=== PATIENT | female | born 1960 | race Caucasian/White ===

== ENCOUNTER 2018-12-11 06:29 | Emergency (ER) | payer BC, OTHER ==
[2018-12-11] MEDS ORDERED: Sodium Chloride 0.9% 10 ML Syringe FLUSH PRN (07:08)
[2018-12-11] MEDS ORDERED: Sodium Chloride 0.9% 1,000 ML IV SCH (07:15)
--- NOTE | 2018-12-11 08:03 | EDM.PDOC ---
ED HPI GENERAL MEDICAL PROBLEM - General Chief Complaint: Neurological Problem Stated Complaint: LIGHTHEADED DIZZY Time Seen by Provider: 12/11/18 06:56 Source of Information: Reports: Patient, Family History Limitations: Reports: No Limitations - History of Present Illness INITIAL COMMENTS - FREE TEXT/NARRATIVE: The patient presents with dizziness. This happened just before arrival as she was on her way to work. She says if feels like the room is spinning. She has some pain to the left side of her head. This happened a few months ago when she had a sinus infection and fluid build up in her ear. She has no fever, chills or cough. She does have some congestion. She has no ear pain. She has no sore throat. She has no chest pain, shortness of breath, abdominal pain, nausea or vomiting. She has no numbness or weakness. She has no heart problems. Onset: Sudden Duration: Minutes: Location: Reports: Head (left side) Quality: Reports: Sharp Severity: Mild Improves with: Reports: None Worsens with: Reports: None Associated Symptoms: Reports: Headaches. Denies: Chest Pain, Cough, Fever/ Chills, Nausea/Vomiting, Shortness of Breath Left Parietal Headache Pain Score (Numeric/FACES): 4 - Related Data Allergies Allergy/AdvReac Type Severity Reaction Status Date / Time Iodinated Contrast- Oral and Allergy Anaphylactic Verified 12/11/18 06:38 IV Dye Shock morphine Allergy Swelling Verified 12/11/18 06:38 Home Meds: Home Meds Amoxicillin 875 mg PO BID #20 tab 12/11/18 [Rx] Meclizine [Antivert] 25 mg PO Q6H PRN #30 tab 12/11/18 [Rx] Past Medical History Musculoskeletal History: Reports: Fracture - Past Surgical History HEENT Surgical History: Reports: Naso-Sinus Surgery Female Surgical History: Reports: Hysterectomy, Tubal Ligation Musculoskeletal Surgical History: Reports: Arthroscopic Knee, Carpal Tunnel Social & Family History - Tobacco Use Smoking Status *Q: Former Smoker Used Tobacco, but Quit: Yes Month/Year Tobacco Last Used: 1980 - Recreational Drug Use Recreational Drug Use: No ED ROS GENERAL - Review of Systems Review Of Systems: See Below Constitutional: Reports: No Symptoms HEENT: Reports: No Symptoms Respiratory: Reports: No Symptoms Cardiovascular: Reports: No Symptoms Endocrine: Reports: No Symptoms GI/Abdominal: Reports: No Symptoms : Reports: No Symptoms Musculoskeletal: Reports: No Symptoms Skin: Reports: No Symptoms Neurological: Reports: Dizziness, Headache ED EXAM, NEURO - Physical Exam Exam: See Below Exam Limited By: No Limitations General Appearance: Alert, No Apparent Distress Eye Exam: Bilateral Eye: EOMI, Nystagmus (to the left and right), PERRL Ears: Normal External Exam, Other (Cerumen in the left ear canal with erythema and fluid behind the TM) Nose: Normal Inspection Throat/Mouth: Normal Inspection Head Exam: Atraumatic, Normocephalic Neck: Normal Inspection Respiratory/Chest: No Respiratory Distress, Lungs Clear, Normal Breath Sounds Cardiovascular: Regular Rate, Rhythm, No Edema, No Murmur GI/Abdominal: Soft, Non-Tender, No Organomegaly, No Mass Neurological: Alert, No Motor/Sensory Deficits, Oriented x 3 EKG INTERPRETATION EKG Date: 12/11/18 Time: 07:25 Rhythm: NSR Rate (Beats/Min): 62 [place]: Normal P-Wave: Present QRS: Normal ST-T: Normal QT: Normal Course - Vital Signs Last Recorded V/S: Last Vital Signs Temp 97.5 F 12/11/18 06:38 Pulse 69 12/11/18 06:38 Resp 15 12/11/18 06:38 BP 119/73 12/11/18 06:38 Pulse Ox 98 12/11/18 06:38 - Orders/Labs/Meds Orders: Active Orders 24 hr Category Date Time Status Cardiac Monitoring [RC] . DIRECTED Care 12/11/18 07:09 Active EKG Documentation Completion [RC] STAT Care 12/11/18 07:09 Active Peripheral IV Care [RC] . DIRECTED Care 12/11/18 07:09 Active Sodium Chloride 0.9% [Normal Saline] 1,000 ml Med 12/11/18 07:15 Active IV ASDIRECTED Sodium Chloride 0.9% [Saline Flush] Med 12/11/18 07:08 Active 10 ml FLUSH ASDIRECTED PRN Peripheral IV Insertion Adult [OM.PC] Stat Oth 12/11/18 07:08 Ordered Medication Orders Sodium Chloride (Normal Saline) 1,000 mls @ 125 mls/hr IV ASDIRECTED MIRELA Last Admin: 12/11/18 07:34 Dose: 125 mls/hr Sodium Chloride (Saline Flush) 10 ml FLUSH ASDIRECTED PRN PRN Reason: Keep Vein Open Last Admin: 12/11/18 07:34 Dose: 10 ml Labs: Laboratory Tests 12/11/18 12/11/18 Range/Units 07:30 07:30 WBC 4.53 (3.98-10.04) K/mm3 RBC 4.78 (3.98-5.22) M/mm3 Hgb 13.8 (11.2-15.7) gm/L Hct 42.1 (34.1-44.9) % MCV 88.1 (79.4-94.8) fl MCH 28.9 (25.6-32.2) pg MCHC 32.8 (32.2-35.5) g/dl RDW Std Deviation 41.5 (36.4-46.3) fL Plt Count 281 (182-369) K/mm3 MPV 9.7 (9.4-12.3) fl Neut % (Auto) 57.8 (34.0-71.1) % Lymph % (Auto) 32.7 (19.3-51.7) % [place] % (Auto) 6.2 (4.7-12.5) % Eos % (Auto) 2.9 (0.7-5.8) Baso % (Auto) 0.4 (0.1-1.2) % Neut # (Auto) 2.62 (1.56-6.13) K/mm3 Lymph # (Auto) 1.48 (1.18-3.74) K/mm3 [place] # (Auto) 0.28 (0.24-0.36) K/mm3 Eos # (Auto) 0.13 (0.04-0.36) K/mm3 Baso # (Auto) 0.02 (0.01-0.08) K/mm3 Sodium 141 (136-145) mEq/L Potassium 3.7 (3.5-5.1) mEq/L Chloride 107 (98-107) mEq/L Carbon Dioxide 28 (21-32) mEq/L Anion Gap 9.7 (5-15) BUN 12 (7-18) mg/dL Creatinine 0.8 (0.55-1.02) mg/dL Est Cr Clr Drug Dosing 66.19 mL/min Estimated GFR (MDRD) > 60 (>60) mL/min BUN/Creatinine Ratio 15.0 (14-18) Glucose 133 H (74-106) mg/dL Calcium 9.5 (8.5-10.1) mg/dL Total Bilirubin 0.2 (0.2-1.0) mg/dL AST 14 L (15-37) U/L ALT 25 (14-59) U/L Alkaline Phosphatase 116 (46-116) U/L Troponin I < 0.017 (0.00-0.056) ng/mL Total Protein 7.0 (6.4-8.2) g/dl Albumin 3.6 (3.4-5.0) g/dl Globulin 3.4 gm/dL Albumin/Globulin Ratio 1.1 (1-2) Meds: Medications Generic Name Dose Route Start Last Admin Trade Name Freq PRN Reason Stop Dose Admin Sodium Chloride 1,000 mls @ 125 mls/hr 12/11/18 07:15 12/11/18 07:34 Normal Saline IV 125 mls/hr ASDIRECTED MIRELA Administration Sodium Chloride 10 ml 12/11/18 07:08 12/11/18 07:34 Saline Flush FLUSH 10 ml ASDIRECTED PRN Administration Keep Vein Open Discontinued Medications Generic Name Dose Route Start Last Admin Trade Name Freq PRN Reason Stop Dose Admin Meclizine HCl 25 mg 12/11/18 07:10 12/11/18 07:22 Antivert PO 12/11/18 07:11 25 mg ONETIME ONE Administration - Re-Assessments/Exams Free Text/Narrative Re-Assessment/Exam: 12/11/18 08:12 I ordered an IV NS at 125mL/hr, antivert 25mg by mouth, EKG, CT of he head and labs. Her EKG shows a NSR with no acute changes. 12/11/18 08:[address] of her head looks good. Her labs all look good. She has a left otitis media and some labarynthitis with vertigo. I will get her on an antibiotic and some antivert for the dizziness. Departure - Departure Time of Disposition: 08:45 Disposition: Home, Self-Care 01 Condition: Good Clinical Impression: Vertigo Bacterial labyrinthitis Qualifiers: Laterality: left Qualified Code(s): H83.02 - Labyrinthitis, left ear; B96.89 - Other specified bacterial agents as the cause of diseases classified elsewhere Otitis media Qualifiers: Otitis media type: serous Chronicity: acute Laterality: left Recurrence: non- recurrent Qualified Code(s): H65.02 - Acute serous otitis media, left ear - Discharge Information *PRESCRIPTION DRUG MONITORING PROGRAM REVIEWED*: Not Applicable *COPY OF PRESCRIPTION DRUG MONITORING REPORT IN PATIENT ROXANE: Not Applicable Prescriptions: Amoxicillin 875 mg PO BID #20 tab Meclizine [Antivert] 25 mg PO Q6H PRN #30 tab PRN Reason: Dizziness Referrals: Steph Carter MD [Primary Care Provider] - 1 Week Forms: ED Department Discharge Additional Instructions: Take the amoxicillin 2 times per day for 10 days. Take the antivert every 6 hours as needed for dizziness. Drink plenty of fluids. Please return if you are worse. - My Orders Last 24 Hours: My Active Orders 12/11/18 07:08 Sodium Chloride 0.9% [Saline Flush] 10 ml FLUSH ASDIRECTED PRN Peripheral IV Insertion Adult [OM.PC] Stat 12/11/18 07:09 Cardiac Monitoring [RC] . DIRECTED EKG Documentation Completion [RC] STAT Peripheral IV Care [RC] . DIRECTED 12/11/18 07:15 Sodium Chloride 0.9% [Normal Saline] 1,000 ml IV ASDIRECTED - Assessment/Plan Last 24 Hours: My Active Orders 12/11/18 07:08 Sodium Chloride 0.9% [Saline Flush] 10 ml FLUSH ASDIRECTED PRN Peripheral IV Insertion Adult [OM.PC] Stat 12/11/18 07:09 Cardiac Monitoring [RC] . DIRECTED EKG Documentation Completion [RC] STAT Peripheral IV Care [RC] . DIRECTED 12/11/18 07:15 Sodium Chloride 0.9% [Normal Saline] 1,000 ml IV ASDIRECTED
--- NOTE | 2018-12-11 08:12 | CT ---
Head CT Technique: Multiple axial sections through the brain were obtained. Intravenous contrast was not utilized. Comparison: No prior intracranial imaging is available. Findings: Ventricles along with basal cisterns and sulci over the convexities are within normal limits for the patient's age. No abnormal parenchymal densities are seen. No evidence of intracranial hemorrhage. No midline shift or mass effect is seen. Bone window settings were reviewed which shows no acute calvarial abnormality. Visualized sinuses are clear. Impression: 1. Nothing acute is identified on noncontrast head CT exam. Diagnostic code #1
== END 2018-12-11 09:00 | disposition home or self-care (01) ==
LOC: JD.ED 06:29
DX: H83.02 Labyrinthitis, left ear (principal); B96.89 Other specified bacterial agents as the cause of diseases classified elsewhere; H65.02 Acute serous otitis media, left ear; R42 Dizziness and giddiness; Z88.5 Allergy status to narcotic agent; Z87.891 Personal history of nicotine dependence
CPT/HCPCS: 36415; 70450; 80053; 84484; 85025; 93005; 96360; 99284; A9270; J7040; 93010

== ENCOUNTER 2019-08-27 14:30 | Observation (INO) | payer BC ==
[2019-08-27] MEDS ORDERED: Sodium Chloride 0.9% 10 ML Syringe FLUSH PRN ×2 (15:13→16:35)
[2019-08-27] MEDS ORDERED: Ondansetron 4 MG/2 ML SDV IVPUSH ONE (15:17)
[2019-08-27] MEDS ORDERED: Sodium Chloride 0.9% 1,000 ML IV ONE (15:18)
--- NOTE | 2019-08-27 15:22 | EDM.PDOC ---
ED HPI GENERAL MEDICAL PROBLEM - General Chief Complaint: Abdominal Pain Stated Complaint: ABDOMINAL PAIN/BLOOD IN STOOL Time Seen by Provider: 08/27/19 14:45 Source of Information: Reports: Patient, RN Notes Reviewed History Limitations: Reports: No Limitations - History of Present Illness INITIAL COMMENTS - FREE TEXT/NARRATIVE: Patient is a 58-year-old female who presents to the ED for the evaluation of bright red blood in her stool with some abdominal pain. The patient notes that at around 1 PM today, she developed some diarrhea, that she noticed was bright red blood. She states she had had one episode at 1 PM, and then another 1 about 30 minutes prior to arrival to the ER. She is also having some lower abdominal pain associated with this. She denies any fever, chills, nausea/ vomiting, chest pain, shortness of breath. Patient states she was recently diagnosed with strep throat 1 week ago and is currently taking 500 mg of amoxicillin. Patient is not complaining of any dizziness or lightheadedness at this time, she has not been told she has had any sort of bleeding or clotting disorders. She is further denying any dysuria. Patient states she has a history of a external hemorrhoid, but states she thought that this has relieved itself. She states that she started iron supplementation again 3 days ago. Patient has not had any issues with GI bleed in the past. Patient is not on any blood thinners. Lower Abdomen Pain Score (Numeric/FACES): 2 - Related Data Allergies Allergy/AdvReac Type Severity Reaction Status Date / Time Iodinated Contrast Media Allergy Anaphylactic Verified 06/10/19 17:56 [Iodinated Contrast- Oral Shock and IV Dye] morphine Allergy Swelling Verified 06/10/19 17:56 Home Meds: Home Meds Amoxicillin 500 mg PO DAILY 06/10/19 [History] estradioL [Estradiol] 1 mg PO BEDTIME 06/10/19 [History] Calc/D3/Mag/Zn/Maninder/Damion/[place]verse [Calcium 600 MG Plus Vit D] 1 each PO DAILY 08/27 [History] Montelukast [Singulair] 10 mg PO DAILY 08/27/19 [History] Nabumetone [Relafen Ds] 1,000 mg PO DAILY 08/27/19 [History] Propylene Glycol/Peg 400 [Systane 0.3-0.4% Eye Drops] 1 drop EYEBOTH DAILY 08/27 [History] Venlafaxine [Venlafaxine HCl ER] 150 mg PO DAILY 08/27/19 [History] Past Medical History HEENT History: Reports: Sinusitis Musculoskeletal History: Reports: Fracture - Past Surgical History HEENT Surgical History: Reports: Naso-Sinus Surgery Female Surgical History: Reports: Hysterectomy, Tubal Ligation Musculoskeletal Surgical History: Reports: Arthroscopic Knee, Carpal Tunnel, Knee Replacement Social & Family History - Family History Family Medical History: Noncontributory - Caffeine Use Caffeine Use: Reports: None ED ROS GENERAL - Review of Systems Review Of Systems: See Below Constitutional: Denies: Fever, Chills Respiratory: Denies: Shortness of Breath Cardiovascular: Denies: Chest Pain GI/Abdominal: Reports: Abdominal Pain (Lower), Bloody Stool (Watery, bloody stools x3), Diarrhea (Watery, bloody stools x3). Denies: Nausea, Vomiting : Denies: Dysuria ED EXAM, GI/ABD - Physical Exam Exam: See Below Exam Limited By: No Limitations General Appearance: Alert, WD/WN, No Apparent Distress Eyes: Bilateral: Normal Appearance, EOMI Throat/Mouth: Normal Inspection, Normal Lips, Normal Teeth, Normal Gums, Normal Oropharynx, Normal Voice, No Airway Compromise Head: Atraumatic Neck: Normal Inspection Respiratory/Chest: No Respiratory Distress, Lungs Clear, Normal Breath Sounds, No Accessory Muscle Use, Chest Non-Tender Cardiovascular: Normal Peripheral Pulses, Regular Rate, Rhythm, No Murmur GI/Abdominal Exam: Normal Bowel Sounds, Soft, No Distention, No Mass, Tender ( generalized lower abdomen pain) Rectal (Female) Exam: Heme + Stool (pt had a BM just after checking into ER, There is bright red blood present.) Extremities: Normal Inspection, Normal Capillary Refill Neurological: Alert, Oriented, Normal Cognition, No Motor/Sensory Deficits Psychiatric: Normal Affect, Normal Mood Skin Exam: Warm, Dry, Intact, Normal Color, No Rash Course - Vital Signs Last Recorded V/S: Last Vital Signs Temp 98 F 08/27/19 14:39 Pulse 84 08/27/19 14:39 Resp 16 08/27/19 14:39 BP 136/82 08/27/19 14:39 Pulse Ox 98 08/27/19 14:39 - Orders/Labs/Meds Orders: Active Orders 24 hr Category Date Time Status Peripheral IV Care [RC] . DIRECTED Care 08/27/19 15:14 Active INR,PT,PROTHROMBIN TIME [COAG] Stat Lab 08/27/19 16:24 Ordered PTT,PARTIAL THROMBOPLSTIN TIME [COAG] Stat Lab 08/27/19 16:24 Ordered TYPE AND SCREEN [BBK] Stat Lab 08/27/19 15:29 Ordered Sodium Chloride 0.9% [Normal Saline] 1,000 ml Med 08/27/19 15:18 Active IV ONETIME Sodium Chloride 0.9% [Saline Flush] Med 08/27/19 15:13 Active 10 ml FLUSH ASDIRECTED PRN Peripheral IV Insertion Adult [OM.PC] Stat Oth 08/27/19 15:13 Ordered Medication Orders Sodium Chloride (Normal Saline) 1,000 mls @ 500 mls/hr IV ONETIME ONE Stop: 08/27/19 17:17 Last Admin: 08/27/19 15:27 Dose: 500 mls/hr Sodium Chloride (Saline Flush) 10 ml FLUSH ASDIRECTED PRN PRN Reason: Keep Vein Open Last Admin: 08/27/19 15:21 Dose: 10 ml Labs: Laboratory Tests 08/27/19 08/27/19 Range/Units 15:20 15:20 WBC 10.82 H (3.98-10.04) K/mm3 RBC 4.31 (3.98-5.22) M/mm3 Hgb 12.5 (11.2-15.7) gm/dl Hct 38.0 (34.1-44.9) % MCV 88.2 (79.4-94.8) fl MCH 29.0 (25.6-32.2) pg MCHC 32.9 (32.2-35.5) g/dl RDW Std Deviation 39.7 (36.4-46.3) fL Plt Count 470 H D (182-369) K/mm3 MPV 9.0 L (9.4-12.3) fl Neut % (Auto) 73.3 H (34.0-71.1) % Lymph % (Auto) 20.3 (19.3-51.7) % [place] % (Auto) 4.3 L (4.7-12.5) % Eos % (Auto) 1.6 (0.7-5.8) Baso % (Auto) 0.2 (0.1-1.2) % Neut # (Auto) 7.93 H (1.56-6.13) K/mm3 Lymph # (Auto) 2.20 (1.18-3.74) K/mm3 [place] # (Auto) 0.47 H (0.24-0.36) K/mm3 Eos # (Auto) 0.17 (0.04-0.36) K/mm3 Baso # (Auto) 0.02 (0.01-0.08) K/mm3 Manual Slide Review Normal smear Sodium 141 (136-145) mEq/L Potassium 3.5 (3.5-5.1) mEq/L Chloride 103 (98-107) mEq/L Carbon Dioxide 26 (21-32) mEq/L Anion Gap 15.5 H (5-15) BUN 13 (7-18) mg/dL Creatinine 0.8 (0.55-1.02) mg/dL Est Cr Clr Drug Dosing 66.19 mL/min Estimated GFR (MDRD) > 60 (>60) mL/min BUN/Creatinine Ratio 16.3 (14-18) Glucose 115 H (74-106) mg/dL Calcium 9.3 (8.5-10.1) mg/dL Total Bilirubin 0.4 (0.2-1.0) mg/dL AST 19 (15-37) U/L ALT 29 (14-59) U/L Alkaline Phosphatase 111 (46-116) U/L Total Protein 7.9 (6.4-8.2) g/dl Albumin 3.8 (3.4-5.0) g/dl Globulin 4.1 gm/dL Albumin/Globulin Ratio 0.9 L (1-2) Meds: Medications Generic Name Dose Route Start Last Admin Trade Name Freq PRN Reason Stop Dose Admin Sodium Chloride 1,000 mls @ 500 mls/hr 08/27/19 15:18 08/27/19 15:27 Normal Saline IV 08/27/19 17:17 500 mls/hr ONETIME ONE Administration Sodium Chloride 10 ml 08/27/19 15:13 08/27/19 15:21 Saline Flush FLUSH 10 ml ASDIRECTED PRN Administration Keep Vein Open Discontinued Medications Generic Name Dose Route Start Last Admin Trade Name Freq PRN Reason Stop Dose Admin Ondansetron HCl 4 mg 08/27/19 15:17 08/27/19 15:27 Zofran IVPUSH 08/27/19 15:18 4 mg ONETIME ONE Administration - Re-Assessments/Exams Free Text/Narrative Re-Assessment/Exam: 08/27/19 15:28 Patient presents to the ED for some lower abdominal pain and bright red blood per rectum. Will have an IV be started, with some labs to be obtained, patient will have an abdomen pelvis CT without contrast as she has an anaphylactic reaction to iodinated contrast media. Patient's not had any sort a history of diverticulitis or anything, so I am unsure to the etiology of the bleeding upon initial history. 08/27/19 16:[address] without contrast is done and demonstrates a small abnormality within the upper rectum which shows peripheral high density and central air uncertain to the etiology of this finding, but you should consider endoscopic evaluation. She also has a nonobstructing stone within the left kidney, but no other acute abnormality was appreciated on this CT study. I did discuss the patient' s case with Dr. Torres our surgeon on-call, and he would like the patient admitted for observation overnight with hemoglobin and hematocrits done every 6 hours, the patient be kept n.p.o., some IV fluids with 2 large-bore IVs started for management Departure - Departure Time of Disposition: 16:31 Disposition: Refer to Observation Condition: Fair Clinical Impression: Gastrointestinal bleeding, lower - Discharge Information *PRESCRIPTION DRUG MONITORING PROGRAM REVIEWED*: No *COPY OF PRESCRIPTION DRUG MONITORING REPORT IN PATIENT ROXANE: No Forms: ED Department Discharge Sepsis Event Note - Evaluation Sepsis Screening Result: No Definite Risk - Focused Exam Vital Signs: Vital Signs Temp Pulse Resp BP Pulse Ox 08/27/19 14:39 98 F 84 16 136/82 98 Date Exam was Performed: 08/27/19 Time Exam was Performed: 16:29 - My Orders Last 24 Hours: My Active Orders 08/27/19 15:13 Sodium Chloride 0.9% [Saline Flush] 10 ml FLUSH ASDIRECTED PRN Peripheral IV Insertion Adult [OM.PC] Stat 08/27/19 15:14 Peripheral IV Care [RC] . DIRECTED 08/27/19 15:18 Sodium Chloride 0.9% [Normal Saline] 1,000 ml IV ONETIME 08/27/19 15:29 TYPE AND SCREEN [BBK] Stat 08/27/19 16:24 INR,PT,PROTHROMBIN TIME [COAG] Stat PTT,PARTIAL THROMBOPLSTIN TIME [COAG] Stat - Assessment/Plan Last 24 Hours: My Active Orders 08/27/19 15:13 Sodium Chloride 0.9% [Saline Flush] 10 ml FLUSH ASDIRECTED PRN Peripheral IV Insertion Adult [OM.PC] Stat 08/27/19 15:14 Peripheral IV Care [RC] . DIRECTED 08/27/19 15:18 Sodium Chloride 0.9% [Normal Saline] 1,000 ml IV ONETIME 08/27/19 15:29 TYPE AND SCREEN [BBK] Stat 08/27/19 16:24 INR,PT,PROTHROMBIN TIME [COAG] Stat PTT,PARTIAL THROMBOPLSTIN TIME [COAG] Stat
--- NOTE | 2019-08-27 16:20 | CT ---
CT abdomen and pelvis Technique: Multiple axial sections were obtained from above the dome of the diaphragm inferiorly through the pubic symphysis. Intravenous contrast and oral contrast not given. Findings: There is a small hyperdense area within the upper rectum containing a small amount of central air. Uncertain as to the etiology of this finding. No additional abnormality is seen within the colon. Mild increased stool is seen. Appendix is noted and is normal. Other findings: Visualized lung bases shows mild basilar atelectasis. Liver and spleen shows no focal parenchymal abnormality. Adrenal glands show no nodule. Pancreas is within normal limits. Kidneys show no hydronephrosis. There is a nonobstructing stone is noted within the left kidney measuring about 5 mm. Aorta shows no aneurysm. No retroperitoneal adenopathy or mesenteric abnormalities are seen. No pelvic mass or adenopathy is seen. Impression: 1. Small abnormality within the upper rectum which shows peripheral high density and central air. Uncertain as to the etiology of this finding. Consider endoscopic evaluation. 2. Nonobstructing stone within left kidney. 3. No additional abnormality is seen on noncontrast CT study of the abdomen and pelvis. Diagnostic code #3 This report was dictated in [place] Standard Time
[2019-08-27] MEDS ORDERED: Ondansetron 4 MG/2 ML SDV IVPUSH PRN (17:41)
[2019-08-27] MEDS ORDERED: HYDROmorphone 0.5 MG/0.5 ML Syringe IVPUSH PRN (17:41)
[2019-08-27] MEDS ORDERED: Lactated Ringers 1,000 ML IV SCH (17:45)
[2019-08-27] MEDS: Lactated Ringers 1,000 ML IV SCH (18:40)
--- NOTE | 2019-08-27 18:57 | PCM.HP.2 ---
H&P History of Present Illness - General Date of Service: 08/27/19 Admit Problem/Dx: Admission Diagnosis/Problem Admission Diagnosis/Problem GI bleed not requiring more than 4 units of blood in 24 hours, ICU, or surgery Source of Information: Patient History Limitations: Reports: No Limitations - History of Present Illness Initial Comments - Free Text/Narative: Patient was in her usual state of health until this afternoon when she started passing ronn blood per rectum. She passed two large bloody bowel movements and presented to the hospital. She passed two additional bloody stools one in the ED and one in her inpatient room. She had mild low abdominal cramps that resolved but no other abdominal pain. She reports that her last colonoscopy was 3 or 4 years ago and was negative. SHe had no personal or family history of colon cancer.She had an episode of emesis that was clear, no blood at all. She reported severe allergy to iodated contrast so she underwent non-contrasted CT a/p which revealed a small hyperdense object in the upper rectum but otherwise unremarkable. Onset of Symptoms: Reports: Today, Sudden Duration of Symptoms: Reports: Hour(s):, Constant Location: Reports: Abdomen Quality: Reports: Other (cramp) Severity: Mild Improves with: Reports: None Worsens with: Reports: None Associated Symptoms: Reports: Nausea/Vomiting Lower Abdomen Pain Score (Numeric/FACES): 2 - Related Data Allergies/Adverse Reactions: Allergies Allergy/AdvReac Type Severity Reaction Status Date / Time Iodinated Contrast Media Allergy Anaphylactic Verified 06/10/19 17:56 [Iodinated Contrast- Oral Shock and IV Dye] morphine Allergy Swelling Verified 06/10/19 17:56 Home Medications: Home Meds Amoxicillin 500 mg PO BID 06/10/19 [History] estradioL [Estradiol] 1 mg PO BEDTIME 06/10/19 [History] Calc/D3/Mag/Zn/Maninder/Damion/[place] [Calcium 600 MG Plus Vit D] 1 each PO DAILY PRN 08/27/19 [History] Montelukast [Singulair] 10 mg PO BEDTIME 08/27/19 [History] Nabumetone [Relafen Ds] 1,000 mg PO DAILY PRN 08/27/19 [History] Progesterone, Micronized [Progesterone] 08/27/19 [History] Propylene Glycol/Peg 400 [Systane 0.3-0.4% Eye Drops] 1 drop EYEBOTH DAILY 08/27 [History] Venlafaxine [Venlafaxine HCl ER] 150 mg PO DAILY 08/27/19 [History] Past Medical History HEENT History: Reports: Sinusitis Other HEENT History: glasses Other OB/BYN History: hot flashes - progesterone and estrigen for this. Musculoskeletal History: Reports: Fracture Neurological History: Reports: Headaches, Chronic Oncologic (Cancer) History: Reports: None - Past Surgical History HEENT Surgical History: Reports: Naso-Sinus Surgery Female Surgical History: Reports: Hysterectomy, Tubal Ligation Musculoskeletal Surgical History: Reports: Arthroscopic Knee, Carpal Tunnel, Knee Replacement Other Musculoskeletal Surgeries/Procedures:: carpal tunnel x2 Social & Family History - Family History Family Medical History: Noncontributory - Tobacco Use Smoking Status *Q: Former Smoker Years of Tobacco use: 3 Packs/Tins Daily: 1 Used Tobacco, but Quit: Yes Month/Year Tobacco Last Used: 30 yrs ago Second Hand Smoke Exposure: No - Caffeine Use Caffeine Use: Reports: Soda Other Caffeine Use: coke/dr. nelson daily - Recreational Drug Use Recreational Drug Use: No H&P Review of Systems - Review of Systems: Review Of Systems: See Below General: Reports: No Symptoms HEENT: Reports: No Symptoms Pulmonary: Reports: No Symptoms Cardiovascular: Reports: No Symptoms Gastrointestinal: Reports: No Symptoms Genitourinary: Reports: No Symptoms Musculoskeletal: Reports: No Symptoms Skin: Reports: No Symptoms Psychiatric: Reports: No Symptoms Neurological: Reports: No Symptoms Exam - Exam Exam: See Below - Vital Signs Vital Signs: Last Vital Signs Temp 98.2 F 08/27/19 17:36 Pulse 69 08/27/19 18:08 Resp 18 08/27/19 17:36 BP 110/73 08/27/19 18:08 Pulse Ox 94 L 08/27/19 18:08 Weight: 74.298 kg - Exam General: Alert, Oriented, Cooperative, Mild Distress HEENT: Conjunctiva Clear Neck: Supple, Trachea Midline Lungs: Clear to Auscultation, Normal Respiratory Effort Cardiovascular: Regular Rate, Regular Rhythm, Normal S1, Normal S2 GI/Abdominal Exam: Normal Bowel Sounds, Soft, Non-Tender, No Organomegaly, No Distention, No Abnormal Bruit - Patient Data Lab Results Last 24 hrs: Laboratory Results - last 24 hr 08/27/19 08/27/19 08/27/19 Range/Units 15:20 15:20 15:20 WBC 10.82 H (3.98-10.04) K/mm3 RBC 4.31 (3.98-5.22) M/mm3 Hgb 12.5 (11.2-15.7) gm/dl Hct 38.0 (34.1-44.9) % MCV 88.2 (79.4-94.8) fl MCH 29.0 (25.6-32.2) pg MCHC 32.9 (32.2-35.5) g/dl RDW Std Deviation 39.7 (36.4-46.3) fL Plt Count 470 H D (182-369) K/mm3 MPV 9.0 L (9.4-12.3) fl Neut % (Auto) 73.3 H (34.0-71.1) % Lymph % (Auto) 20.3 (19.3-51.7) % [place] % (Auto) 4.3 L (4.7-12.5) % Eos % (Auto) 1.6 (0.7-5.8) Baso % (Auto) 0.2 (0.1-1.2) % Neut # (Auto) 7.93 H (1.56-6.13) K/mm3 Lymph # (Auto) 2.20 (1.18-3.74) K/mm3 [place] # (Auto) 0.47 H (0.24-0.36) K/mm3 Eos # (Auto) 0.17 (0.04-0.36) K/mm3 Baso # (Auto) 0.02 (0.01-0.08) K/mm3 Manual Slide Review Normal smear PT (9.7-12.0) SECONDS INR APTT (22-31) SECONDS Sodium 141 (136-145) mEq/L Potassium 3.5 (3.5-5.1) mEq/L Chloride 103 (98-107) mEq/L Carbon Dioxide 26 (21-32) mEq/L Anion Gap 15.5 H (5-15) BUN 13 (7-18) mg/dL Creatinine 0.8 (0.55-1.02) mg/dL Est Cr Clr Drug Dosing 66.19 mL/min Estimated GFR (MDRD) > 60 (>60) mL/min BUN/Creatinine Ratio 16.3 (14-18) Glucose 115 H (74-106) mg/dL Calcium 9.3 (8.5-10.1) mg/dL Total Bilirubin 0.4 (0.2-1.0) mg/dL AST 19 (15-37) U/L ALT 29 (14-59) U/L Alkaline Phosphatase 111 (46-116) U/L Total Protein 7.9 (6.4-8.2) g/dl Albumin 3.8 (3.4-5.0) g/dl Globulin 4.1 gm/dL Albumin/Globulin Ratio 0.9 L (1-2) Blood Type O POSITIVE Gel Antibody Screen Negative 08/27/19 Range/Units 15:20 WBC (3.98-10.04) K/mm3 RBC (3.98-5.22) M/mm3 Hgb (11.2-15.7) gm/dl Hct (34.1-44.9) % MCV (79.4-94.8) fl MCH (25.6-32.2) pg MCHC (32.2-35.5) g/dl RDW Std Deviation (36.4-46.3) fL Plt Count (182-369) K/mm3 MPV (9.4-12.3) fl Neut % (Auto) (34.0-71.1) % Lymph % (Auto) (19.3-51.7) % [place] % (Auto) (4.7-12.5) % Eos % (Auto) (0.7-5.8) Baso % (Auto) (0.1-1.2) % Neut # (Auto) (1.56-6.13) K/mm3 Lymph # (Auto) (1.18-3.74) K/mm3 [place] # (Auto) (0.24-0.36) K/mm3 Eos # (Auto) (0.04-0.36) K/mm3 Baso # (Auto) (0.01-0.08) K/mm3 Manual Slide Review PT 10.4 (9.7-12.0) SECONDS INR 0.95 APTT 33 H (22-31) SECONDS Sodium (136-145) mEq/L Potassium (3.5-5.1) mEq/L Chloride (98-107) mEq/L Carbon Dioxide (21-32) mEq/L Anion Gap (5-15) BUN (7-18) mg/dL Creatinine (0.55-1.02) mg/dL Est Cr Clr Drug Dosing mL/min Estimated GFR (MDRD) (>60) mL/min BUN/Creatinine Ratio (14-18) Glucose (74-106) mg/dL Calcium (8.5-10.1) mg/dL Total Bilirubin (0.2-1.0) mg/dL AST (15-37) U/L ALT (14-59) U/L Alkaline Phosphatase (46-116) U/L Total Protein (6.4-8.2) g/dl Albumin (3.4-5.0) g/dl Globulin gm/dL Albumin/Globulin Ratio (1-2) Blood Type Gel Antibody Screen Result Diagrams: 08/27/19 15:20 08/27/19 15:20 Sepsis Event Note - Evaluation Sepsis Screening Result: No Definite Risk - Focused Exam Vital Signs: Vital Signs Temp Temp Pulse Pulse Resp BP BP 08/27/19 18:08 69 110/73 08/27/19 17:36 98.2 F 85 18 113/66 08/27/19 14:39 98 F 84 16 136/82 Pulse Ox 08/27/19 18:08 94 L 08/27/19 17:36 99 08/27/19 14:39 98 Date Exam was Performed: 08/27/19 Time Exam was Performed: 18:52 Problem List Initiated/Reviewed/Updated: No Orders Last 24hrs: Active Orders 24 hr Category Date Time Status Admission Status [Patient Status] [ADT] Routine ADT 08/27/19 16:39 Active Enema [RC] ASDIRECTED Care 08/27/19 18:43 Active Peripheral IV Care [RC] Q2HR Care 08/27/19 15:14 Active Up With Assistance [RC] ASDIRECTED Care 08/27/19 17:41 Active Nothing per Oral Now Diet [DIET] Diet 08/28/19 Breakfast Active HEMOGLOBIN/HEMATOCRIT,HH [HEME] Q6H Lab 08/27/19 21:00 Ordered HEMOGLOBIN/HEMATOCRIT,HH [HEME] Q6H Lab 08/28/19 03:00 Ordered HEMOGLOBIN/HEMATOCRIT,HH [HEME] Q6H Lab 08/28/19 09:00 Ordered HEMOGLOBIN/HEMATOCRIT,HH [HEME] Q6H Lab 08/28/19 15:00 Ordered HEMOGLOBIN/HEMATOCRIT,HH [HEME] Q6H Lab 08/28/19 21:00 Ordered HYDROmorphone [Dilaudid] Med 08/27/19 17:41 Active 0.5 mg IVPUSH Q4H PRN Lactated Ringers [Ringers, Lactated] 1,000 ml Med 08/27/19 18:45 Active IV ASDIRECTED Ondansetron [Zofran] Med 08/27/19 17:41 Active 4 mg IVPUSH Q8H PRN Sodium Chloride 0.9% [Saline Flush] Med 08/27/19 15:13 Active 10 ml FLUSH ASDIRECTED PRN Sodium Chloride 0.9% [Saline Flush] Med 08/27/19 16:35 Active 10 ml FLUSH ASDIRECTED PRN Peripheral IV Insertion Adult [OM.PC] Routine Oth 08/27/19 16:35 Ordered Peripheral IV Insertion Adult [OM.PC] Stat Ot 08/27/19 15:13 Ordered Schedule Procedure [COMM] Stat Ot 08/27/19 18:42 Ordered Resuscitation Status Routine Resus Stat 08/27/19 18:18 Ordered Medication Orders Hydromorphone HCl (Dilaudid) 0.5 mg IVPUSH Q4H PRN PRN Reason: Pain Lactated Ringer's (Ringers, Lactated) 1,000 mls @ 125 mls/hr IV ASDIRECTED [facility] Ondansetron HCl (Zofran) 4 mg IVPUSH Q8H PRN PRN Reason: Nausea Sodium Chloride (Saline Flush) 10 ml FLUSH ASDIRECTED PRN PRN Reason: Keep Vein Open Last Admin: 08/27/19 15:21 Dose: 10 ml Sodium Chloride (Saline Flush) 10 ml FLUSH ASDIRECTED PRN PRN Reason: Keep Vein Open Assessment/Plan Comment:: Patient presents with severe hematochezia. She has several episodes that do not seem to be slowing down. I recommended to proceed with an emergent colonoscopy to evaluate the rectal lesion and see if this is the source of bleeding. I did discuss with her that because this is an unprepped exam, we may not be able to do a full colonoscopy and if source of bleeding is not identified she will still need a full colonoscopy in the future. we also discussed risks, benefits and alternatives. Risks discussed include bleeding and perforation. Informed consent was obtained.
--- NOTE | 2019-08-27 19:24 | PCM.PREANE ---
Preanesthetic Assessment - Anesthesia/Transfusion/Family Hx Anesthesia History: Prior Anesthesia Reaction (nausea) Family History of Anesthesia Reaction: No Transfusion History: No Prior Transfusion(s) - Review of Systems General: Fatigue Pulmonary: No Symptoms Cardiovascular: No Symptoms Gastrointestinal: Hematochezia, Nausea, Vomiting Neurological: No Symptoms Other: Reports: Easy Bruising - Physical Assessment NPO Status Date: 08/27/19 NPO Status Time: 13:00 Vital Signs: Last Vital Signs Temp 36.8 C 08/27/19 17:36 Pulse 69 08/27/19 18:08 Resp 18 08/27/19 17:36 BP 110/73 08/27/19 18:08 Pulse Ox 94 L 08/27/19 18:08 Height: 1.63 m Weight: 74.298 kg ASA Class: 2 Mental Status: Alert & Oriented x3 Airway Class: Mallampati = 2 Dentition: Reports: Bridge (right top) Thyro-Mental Finger Breadths: 3 Mouth Opening Finger Breadths: 2 ROM/Head Extension: Full Lungs: Clear to Auscultation, Normal Respiratory Effort Cardiovascular: Regular Rate, Regular Rhythm - Lab Values: Laboratory Last Values WBC 10.82 K/mm3 (3.98-10.04) H 08/27/19 15:20 RBC 4.31 M/mm3 (3.98-5.22) 08/27/19 15:20 Hgb 12.5 gm/dl (11.2-15.7) 08/27/19 15:20 Hct 38.0 % (34.1-44.9) 08/27/19 15:20 MCV 88.2 fl (79.4-94.8) 08/27/19 15:20 MCH 29.0 pg (25.6-32.2) 08/27/19 15:20 MCHC 32.9 g/dl (32.2-35.5) 08/27/19 15:20 RDW Std Deviation 39.7 fL (36.4-46.3) 08/27/19 15:20 Plt Count 470 K/mm3 (182-369) H D 08/27/19 15:20 MPV 9.0 fl (9.4-12.3) L 08/27/19 15:20 Neut % (Auto) 73.3 % (34.0-71.1) H 08/27/19 15:20 Lymph % (Auto) 20.3 % (19.3-51.7) 08/27/19 15:20 [place] % (Auto) 4.3 % (4.7-12.5) L 08/27/19 15:20 Eos % (Auto) 1.6 (0.7-5.8) 08/27/19 15:20 Baso % (Auto) 0.2 % (0.1-1.2) 08/27/19 15:20 Neut # (Auto) 7.93 K/mm3 (1.56-6.13) H 08/27/19 15:20 Lymph # (Auto) 2.20 K/mm3 (1.18-3.74) 08/27/19 15:20 [place] # (Auto) 0.47 K/mm3 (0.24-0.36) H 08/27/19 15:20 Eos # (Auto) 0.17 K/mm3 (0.04-0.36) 08/27/19 15:20 Baso # (Auto) 0.02 K/mm3 (0.01-0.08) 08/27/19 15:20 Manual Slide Review Normal smear 08/27/19 15:20 PT 10.4 SECONDS (9.7-12.0) 08/27/19 15:20 INR 0.95 08/27/19 15:20 APTT 33 SECONDS (22-31) H 08/27/19 15:20 Sodium 141 mEq/L (136-145) 08/27/19 15:20 Potassium 3.5 mEq/L (3.5-5.1) 08/27/19 15:20 Chloride 103 mEq/L (98-107) 08/27/19 15:20 Carbon Dioxide 26 mEq/L (21-32) 08/27/19 15:20 Anion Gap 15.5 (5-15) H 08/27/19 15:20 BUN 13 mg/dL (7-18) 08/27/19 15:20 Creatinine 0.8 mg/dL (0.55-1.02) 08/27/19 15:20 Est Cr Clr Drug Dosing 66.19 mL/min 08/27/19 15:20 Estimated GFR (MDRD) > 60 mL/min (>60) 08/27/19 15:20 BUN/Creatinine Ratio 16.3 (14-18) 08/27/19 15:20 Glucose 115 mg/dL (74-106) H 08/27/19 15:20 Calcium 9.3 mg/dL (8.5-10.1) 08/27/19 15:20 Total Bilirubin 0.4 mg/dL (0.2-1.0) 08/27/19 15:20 AST 19 U/L (15-37) 08/27/19 15:20 ALT 29 U/L (14-59) 08/27/19 15:20 Alkaline Phosphatase 111 U/L (46-116) 08/27/19 15:20 Total Protein 7.9 g/dl (6.4-8.2) 08/27/19 15:20 Albumin 3.8 g/dl (3.4-5.0) 08/27/19 15:20 Globulin 4.1 gm/dL 08/27/19 15:20 Albumin/Globulin Ratio 0.9 (1-2) L 08/27/19 15:20 Blood Type O POSITIVE 08/27/19 15:20 Gel Antibody Screen Negative 08/27/19 15:20 - Allergies Allergies/Adverse Reactions: Allergies Allergy/AdvReac Type Severity Reaction Status Date / Time Iodinated Contrast Media Allergy Anaphylactic Verified 06/10/19 17:56 [Iodinated Contrast- Oral Shock and IV Dye] morphine Allergy Swelling Verified 06/10/19 17:56 - Anesthesia Plan Pre-Op Medication Ordered: None - Acknowledgements Anesthesia Type Planned: MAC Pt an Appropriate Candidate for the Planned Anesthesia: Yes Alternatives and Risks of Anesthesia Discussed w Pt/Guardian: Yes Pt/Guardian Understands and Agrees with Anesthesia Plan: Yes PreAnesthesia Questionnaire HEENT History: Reports: Sinusitis Other HEENT History: glasses Other OB/BYN History: hot flashes - progesterone and estrigen for this. Musculoskeletal History: Reports: Fracture Neurological History: Reports: Headaches, Chronic Oncologic (Cancer) History: Reports: None - Past Surgical History HEENT Surgical History: Reports: Naso-Sinus Surgery Female Surgical History: Reports: Hysterectomy, Tubal Ligation Musculoskeletal Surgical History: Reports: Arthroscopic Knee, Carpal Tunnel, Knee Replacement Other Musculoskeletal Surgeries/Procedures:: carpal tunnel x2 - SUBSTANCE USE Smoking Status *Q: Former Smoker Tobacco Use Within Last Twelve Months: No Second Hand Smoke Exposure: No Days Per Week of Alcohol Use: 1 Number of Drinks Per Day: 0 Total Drinks Per Week: 0 Recreational Drug Use History: No - HOME MEDS Home Medications: Home Meds Amoxicillin 500 mg PO BID 06/10/19 [History] estradioL [Estradiol] 1 mg PO BEDTIME 06/10/19 [History] Calc/D3/Mag/Zn/Maninder/[place] [Calcium 600 MG Plus Vit D] 1 each PO DAILY PRN 08/27/19 [History] Montelukast [Singulair] 10 mg PO BEDTIME 08/27/19 [History] Nabumetone [Relafen Ds] 1,000 mg PO DAILY PRN 08/27/19 [History] Progesterone, Micronized [Progesterone] 08/27/19 [History] Propylene Glycol/Peg 400 [Systane 0.3-0.4% Eye Drops] 1 drop EYEBOTH DAILY 08/27 [History] Venlafaxine [Venlafaxine HCl ER] 150 mg PO DAILY 08/27/19 [History] - CURRENT (IN HOUSE) MEDS Current Meds: Current Medications Hydromorphone HCl (Dilaudid) 0.5 mg IVPUSH Q4H PRN PRN Reason: Pain Lactated Ringer's (Ringers, Lactated) 1,000 mls @ 125 mls/hr IV ASDIRECTED [facility] Last Admin: 08/27/19 18:40 Dose: 125 mls/hr Ondansetron HCl (Zofran) 4 mg IVPUSH Q8H PRN PRN Reason: Nausea Sodium Chloride (Saline Flush) 10 ml FLUSH ASDIRECTED PRN PRN Reason: Keep Vein Open Last Admin: 08/27/19 15:21 Dose: 10 ml Sodium Chloride (Saline Flush) 10 ml FLUSH ASDIRECTED PRN PRN Reason: Keep Vein Open Discontinued Medications Sodium Chloride (Normal Saline) 1,000 mls @ 500 mls/hr IV ONETIME ONE Stop: 08/27/19 17:17 Last Admin: 08/27/19 15:27 Dose: 500 mls/hr Lactated Ringer's (Ringers, Lactated) 1,000 mls @ 75 mls/hr IV ASDIRECTED [facility] Ondansetron HCl (Zofran) 4 mg IVPUSH ONETIME ONE Stop: 08/27/19 15:18 Last Admin: 08/27/19 15:27 Dose: 4 mg
[2019-08-27] MEDS ORDERED: Ondansetron 4 MG/2 ML SDV ONE (19:31)
[2019-08-27] MEDS ORDERED: Propofol 200 MG/20 ML SDV ONE ×2 (19:31→19:53)
[2019-08-27] MEDS ORDERED: Midazolam 1 MG/ML 2 ML SDV ONE (19:31)
[2019-08-27] MEDS ORDERED: fentaNYL 100 MCG/2 ML SDV ONE (19:31)
[2019-08-27] MEDS ORDERED: Lidocaine 1% 4 ML ONE (19:32)
[2019-08-27] MEDS ORDERED: Sodium Chloride 0.9% 50 ML SDV ONE (19:59)
--- NOTE | 2019-08-27 21:00 | PCM48HPAN ---
Post Anesthesia Note - EVALUATION WITHIN 48HRS OF ANESTHETIC Vital Signs in Normal Range: Yes Patient Participated in Evaluation: Yes Respiratory Function Stable: Yes Airway Patent: Yes Cardiovascular Function Stable: Yes Hydration Status Stable: Yes Pain Control Satisfactory: Yes Nausea and Vomiting Control Satisfactory: Yes Mental Status Recovered: Yes Vital Signs: Last Vital Signs Temp 36.8 C 08/27/19 17:36 Pulse 69 08/27/19 18:08 Resp 18 08/27/19 17:36 BP 110/73 08/27/19 18:08 Pulse Ox 94 L 08/27/19 18:08 - COMMENTS/OBSERVATIONS Free Text/Narrative:: no anesthesia complications noted
--- NOTE | 2019-08-27 21:02 | PCM.SN ---
- Free Text/Narrative Note: EGD and Colonoscopy completed. EGD was negative. Colonoscopy revealed mild amount of bloody stool in the distal transverse, descending and mostly in the rectum. No areas of active bleeding found throughout the exam. Plan - Return the patient to the floor - NPO overnight - Continue IVF at 125 cc/hr - Q8hr H/H - Continue Tele - Continue to monitor BM for ronn blood.
--- NOTE | 2019-08-27 21:48 | PROC ---
DATE OF OPERATION: 08/27/2019 SURGEON: Barbara Wild MD PREOPERATIVE DIAGNOSIS: Hematochezia. POSTOPERATIVE DIAGNOSIS: Hematochezia. PROCEDURE: 1. Esophagogastroduodenoscopy. 2. Colonoscopy. ANESTHESIA: Monitored anesthesia care. ESTIMATED BLOOD LOSS: None. FINDINGS: 1. Normal esophagus, normal stomach, normal first and second portion of duodenum. Slight erythema in the duodenal bulb. 2. Moderate amount of bloody stool in the rectum, sigmoid, descending and distal transverse colon. No blood in the proximal transverse colon and ascending colon and cecum. INDICATION AND CONSENT: The patient is a 58-year-old female, who presents acutely today with a large episode of bloody bowel movements. The patient reports that the bowel movements happened starting today. She had no abdominal pain. She was admitted to the floor for monitoring. She continued to have bloody bowel movement. I saw the patient and due to a large amount of hematochezia, I offered her endoscopic exploration. Of note, the patient had a CT scan in the emergency department that showed possibly an upper rectal lesion. I discussed with the patient the risks, benefits, and alternatives to the procedure, and the patient understood. Informed consent was obtained. PROCEDURE IN DETAIL: The patient was taken to the procedure room and placed in the left lateral decubitus position. Following induction of monitored anesthesia care, a bite block was placed and we began with an EGD. A scope was placed into the mouth and advanced all the way to the second portion of duodenum. We saw slight erythema and irritation in the duodenal bulb and lesser curve. None of this was bleeding and there was no stigmata of active bleeding. The second portion of duodenum and the first portion of duodenum were normal. Scope was withdrawn and the rest of the stomach appeared normal. On retroflexion, there was no hiatal hernia. Cardia appeared normal and the entire esophagus appeared normal. Air was suctioned out and scope was withdrawn. Then, we proceeded with colonoscopy. Perianal exam and digital rectal exam were normal. The scope was inserted into the anus, and with aggressive lavage, the scope was advanced all the way to the cecum. There was solid stool coating the cecum. Therefore, the appendiceal orifice was not able to be visualized, but the ileocecal valve was clearly visualized, and the egress from the ileocecal valve was also visualized and did not see any blood. The stool around the ileocecal valve and ascending colon did not seem bloody. The scope was withdrawn slowly, looking clearly at the surroundings of the colon. The hepatic flexure was not bloody. In the transverse colon, there was mild amount of blood in the mid transverse colon and distal transverse colon. The descending and sigmoid colon had a moderate amount of bloody stool, but no active bleeding. The rectum was inspected thoroughly. There were no polyps that were large enough to be visualized. There were no areas of active bleeding or adherent clots. The patient did not have any diverticulosis that I was able to visualize. On retroflexion in the rectum, there were some grade 2 hemorrhoids that did not seem to be irritated or bleeding. So, therefore in the entire exam, there were no areas of active bleeding in the colon that I was able to identify in this unprepped colon. There was no fresh blood, the blood that was seen in the rectum and sigmoid colon was old blood mixed with stool. Then, the air was suctioned out and the scope was withdrawn. The patient was awoken from monitored anesthesia care and taken back to the room. We will continue to monitor the patient overnight with frequent H and H checks, telemonitoring, and we will see how the patient does through the night. PATRIC /[id number]
[2019-08-27] MEDS: Amoxicillin 500 MG Cap PO SCH (22:29)
[2019-08-28] MEDS ORDERED: Sulindac 200 MG Tab PO PRN (02:15)
[2019-08-28] MEDS: Lactated Ringers 1,000 ML IV SCH (05:14)
[2019-08-28] MEDS: Amoxicillin 500 MG Cap PO SCH (08:29)
[2019-08-28] MEDS ORDERED: Venlafaxine 75 MG Cap.ER PO SCH (09:00)
[2019-08-28] MEDS ORDERED: ISOPTO TEARS EYEBOTH SCH (09:00)
[2019-08-28] MEDS ORDERED: Fluticasone Propionate Nasal Spray 16 GM Bottle NASBOTH SCH (09:00)
[2019-08-28] MEDS ORDERED: Cholecalciferol (Vitamin D3) 25 MCG Tab PO SCH (09:00)
[2019-08-28] MEDS ORDERED: Lactated Ringers 1,000 ML IV SCH (09:00)
[2019-08-28] MEDS ORDERED: Polyvinyl Alcohol 1.4% Ophth Soln 15 ML Bottle EYEBOTH SCH (09:00)
[2019-08-28] MEDS ORDERED: Acetaminophen 325 MG Tab PO PRN (09:51)
--- NOTE | 2019-08-28 09:51 | PCM.SURGPN ---
- General Info Date of Service: 08/28/19 POD#: 1 Post-Op Diagnosis: Lower GI bleeding Functional Status: Reports: Pain Controlled, Tolerating Diet, Ambulating, Urinating - Review of Systems General: Reports: No Symptoms HEENT: Reports: No Symptoms Pulmonary: Reports: No Symptoms Cardiovascular: Reports: No Symptoms Gastrointestinal: Reports: No Symptoms Genitourinary: Reports: No Symptoms Musculoskeletal: Reports: No Symptoms Skin: Reports: No Symptoms Neurological: Reports: No Symptoms - Patient Data Vitals - Most Recent: Last Vital Signs Temp 97.9 F 08/28/19 05:24 Pulse 80 08/28/19 05:24 Resp 12 08/28/19 05:24 BP 105/58 L 08/28/19 05:24 Pulse Ox 98 08/28/19 05:24 Weight - Most Recent: 74.571 kg I&O - Last 24 Hours: Intake & Output 08/27/19 08/28/19 08/28/19 22:59 06:59 14:59 Intake Total 1675 Output Total 850 1200 Balance -850 475 Lab Results Last 24 Hrs: Laboratory Results - last 24 hr 08/27/19 08/27/19 08/27/19 Range/Units 15:20 15:20 15:20 WBC 10.82 H (3.98-10.04) K/mm3 RBC 4.31 (3.98-5.22) M/mm3 Hgb 12.5 (11.2-15.7) gm/dl Hct 38.0 (34.1-44.9) % MCV 88.2 (79.4-94.8) fl MCH 29.0 (25.6-32.2) pg MCHC 32.9 (32.2-35.5) g/dl RDW Std Deviation 39.7 (36.4-46.3) fL Plt Count 470 H D (182-369) K/mm3 MPV 9.0 L (9.4-12.3) fl Neut % (Auto) 73.3 H (34.0-71.1) % Lymph % (Auto) 20.3 (19.3-51.7) % [place] % (Auto) 4.3 L (4.7-12.5) % Eos % (Auto) 1.6 (0.7-5.8) Baso % (Auto) 0.2 (0.1-1.2) % Neut # (Auto) 7.93 H (1.56-6.13) K/mm3 Lymph # (Auto) 2.20 (1.18-3.74) K/mm3 [place] # (Auto) 0.47 H (0.24-0.36) K/mm3 Eos # (Auto) 0.17 (0.04-0.36) K/mm3 Baso # (Auto) 0.02 (0.01-0.08) K/mm3 Manual Slide Review Normal smear PT (9.7-12.0) SECONDS INR APTT (22-31) SECONDS Sodium 141 (136-145) mEq/L Potassium 3.5 (3.5-5.1) mEq/L Chloride 103 (98-107) mEq/L Carbon Dioxide 26 (21-32) mEq/L Anion Gap 15.5 H (5-15) BUN 13 (7-18) mg/dL Creatinine 0.8 (0.55-1.02) mg/dL Est Cr Clr Drug Dosing 66.19 mL/min Estimated GFR (MDRD) > 60 (>60) mL/min BUN/Creatinine Ratio 16.3 (14-18) Glucose 115 H (74-106) mg/dL Calcium 9.3 (8.5-10.1) mg/dL Total Bilirubin 0.4 (0.2-1.0) mg/dL AST 19 (15-37) U/L ALT 29 (14-59) U/L Alkaline Phosphatase 111 (46-116) U/L Total Protein 7.9 (6.4-8.2) g/dl Albumin 3.8 (3.4-5.0) g/dl Globulin 4.1 gm/dL Albumin/Globulin Ratio 0.9 L (1-2) Blood Type O POSITIVE Gel Antibody Screen Negative 08/27/19 08/27/19 08/28/19 Range/Units 15:20 21:00 05:10 WBC (3.98-10.04) K/mm3 RBC (3.98-5.22) M/mm3 Hgb 8.9 L D 8.0 L (11.2-15.7) gm/dl Hct 28.0 L 25.9 L (34.1-44.9) % MCV (79.4-94.8) fl MCH (25.6-32.2) pg MCHC (32.2-35.5) g/dl RDW Std Deviation (36.4-46.3) fL Plt Count (182-369) K/mm3 MPV (9.4-12.3) fl Neut % (Auto) (34.0-71.1) % Lymph % (Auto) (19.3-51.7) % [place] % (Auto) (4.7-12.5) % Eos % (Auto) (0.7-5.8) Baso % (Auto) (0.1-1.2) % Neut # (Auto) (1.56-6.13) K/mm3 Lymph # (Auto) (1.18-3.74) K/mm3 [place] # (Auto) (0.24-0.36) K/mm3 Eos # (Auto) (0.04-0.36) K/mm3 Baso # (Auto) (0.01-0.08) K/mm3 Manual Slide Review PT 10.4 (9.7-12.0) SECONDS INR 0.95 APTT 33 H (22-31) SECONDS Sodium (136-145) mEq/L Potassium (3.5-5.1) mEq/L Chloride (98-107) mEq/L Carbon Dioxide (21-32) mEq/L Anion Gap (5-15) BUN (7-18) mg/dL Creatinine (0.55-1.02) mg/dL Est Cr Clr Drug Dosing mL/min Estimated GFR (MDRD) (>60) mL/min BUN/Creatinine Ratio (14-18) Glucose (74-106) mg/dL Calcium (8.5-10.1) mg/dL Total Bilirubin (0.2-1.0) mg/dL AST (15-37) U/L ALT (14-59) U/L Alkaline Phosphatase (46-116) U/L Total Protein (6.4-8.2) g/dl Albumin (3.4-5.0) g/dl Globulin gm/dL Albumin/Globulin Ratio (1-2) Blood Type Gel Antibody Screen Med Orders - Current: Current Medications Amoxicillin (Amoxil) 500 mg PO BID [facility] Last Admin: 08/28/19 08:29 Dose: 500 mg Cholecalciferol (Vitamin D3) 50 mcg PO BID [facility] Last Admin: 08/28/19 08:29 Dose: 50 mcg Estradiol (Estradiol) 1 mg PO BEDTIME [facility] Fluticasone Propionate (Flonase) 0 gm NASBOTH DAILY [facility] Last Admin: 08/28/19 08:30 Dose: 1 spray Hydromorphone HCl (Dilaudid) 0.5 mg IVPUSH Q4H PRN PRN Reason: Pain Lactated Ringer's (Ringers, Lactated) 1,000 mls @ 50 mls/hr IV ASDIRECTED [facility] Last Admin: 08/28/19 09:34 Dose: 50 mls/hr Montelukast Sodium (Singulair) 10 mg PO BEDTIME [facility] Isopto Tears 15 Ml 0 each EYEBOTH BID [facility] Ondansetron HCl (Zofran) 4 mg IVPUSH Q8H PRN PRN Reason: Nausea Estradiol] 12 Mcg 0 each VAG SuTuTh@2100 [facility] Sodium Chloride (Saline Flush) 10 ml FLUSH ASDIRECTED PRN PRN Reason: Keep Vein Open Venlafaxine HCl (Effexor Xr) 150 mg PO DAILY [facility] Last Admin: 08/28/19 08:29 Dose: 150 mg Discontinued Medications Artificial Tears (Liquitears 1.4% Ophth Soln) 0 ml EYEBOTH BID [facility] Last Admin: 08/28/19 09:28 Dose: Not Given Fentanyl (Sublimaze) Confirm Administered Dose 100 mcg .ROUTE .STK-MED ONE Stop: 08/27/19 19:32 Sodium Chloride (Normal Saline) 1,000 mls @ 500 mls/hr IV ONETIME ONE Stop: 08/27/19 17:17 Last Admin: 08/27/19 15:27 Dose: 500 mls/hr Lactated Ringer's (Ringers, Lactated) 1,000 mls @ 75 mls/hr IV ASDIRECTED [facility] Lactated Ringer's (Ringers, Lactated) 1,000 mls @ 125 mls/hr IV ASDIRECTED [facility] Last Admin: 08/28/19 05:14 Dose: 125 mls/hr Lidocaine HCl (Xylocaine-Mpf 1%) Confirm Administered Dose 4 mls @ as directed .ROUTE .STK-MED ONE Stop: 08/27/19 19:33 Midazolam HCl (Versed 1 Mg/Ml) Confirm Administered Dose 2 mg .ROUTE .STK-MED ONE Stop: 08/27/19 19:32 Ondansetron HCl (Zofran) 4 mg IVPUSH ONETIME ONE Stop: 08/27/19 15:18 Last Admin: 08/27/19 15:27 Dose: 4 mg Ondansetron HCl (Zofran) Confirm Administered Dose 4 mg .ROUTE .STK-MED ONE Stop: 08/27/19 19:32 Propofol (Diprivan 20 Ml) Confirm Administered Dose 200 mg .ROUTE .STK-MED ONE Stop: 08/27/19 19:32 Propofol (Diprivan 20 Ml) Confirm Administered Dose 200 mg .ROUTE .STK-MED ONE Stop: 08/27/19 19:54 Sodium Chloride (Saline Flush) 10 ml FLUSH ASDIRECTED PRN PRN Reason: Keep Vein Open Last Admin: 08/27/19 15:21 Dose: 10 ml Sodium Chloride (Normal Saline) Confirm Administered Dose 100 ml .ROUTE .STK- MED ONE Stop: 08/27/19 20:00 Sulindac (Clinoril) 200 mg PO BID PRN PRN Reason: Pain - Exam Wound/Incisions: Healing Well General: Alert, Oriented, Cooperative, No Acute Distress Lungs: Clear to Auscultation, Normal Respiratory Effort Cardiovascular: Regular Rate, Regular Rhythm GI/Abdominal Exam: Normal Bowel Sounds, Soft, Non-Tender, No Organomegaly, No Distention Extremities: Normal Inspection Sepsis Event Note - Evaluation Sepsis Screening Result: No Definite Risk - Focused Exam Vital Signs: Vital Signs Temp Pulse Resp BP BP Pulse Ox 08/28/19 05:24 97.9 F 80 12 105/58 L 98 08/28/19 01:02 65 108/52 L 93 L 08/28/19 00:32 66 98/48 L 93 L 08/27/19 23:47 71 101/49 L 92 L 08/27/19 23:02 64 106/55 L 91 L 08/27/19 22:32 65 111/49 L 96 08/27/19 22:02 64 118/59 L 100 Date Exam was Performed: 08/28/19 Time Exam was Performed: 09:42 - Problem List Review Problem List Initiated/Reviewed/Updated: No - My Orders Last 24 Hours: Active Orders 24 hr Category Date Time Status Admission Status [Patient Status] [ADT] Routine ADT 08/27/19 16:39 Active Antiembolic Devices [RC] PER UNIT ROUTINE Care 08/28/19 08:52 Active Peripheral IV Care [RC] Q2HR Care 08/27/19 15:14 Active Up With Assistance [RC] ASDIRECTED Care 08/27/19 17:41 Active Clear Liquid Diet [DIET] Diet 08/28/19 Breakfast Active HEMOGLOBIN/HEMATOCRIT,HH [HEME] Routine Lab 08/28/19 13:00 Ordered Amoxicillin [Amoxil] Med 08/27/19 21:45 Active 500 mg PO BID Cholecalciferol (Vitamin D3) [Vitamin D3] Med 08/28/19 09:00 Active 50 mcg PO BID Fluticasone Propionate [Flonase] Med 08/28/19 09:00 Active 0 gm NASBOTH DAILY HYDROmorphone [Dilaudid] Med 08/27/19 17:41 Active 0.5 mg IVPUSH Q4H PRN Lactated Ringers [Ringers, Lactated] 1,000 ml Med 08/28/19 09:00 Active IV ASDIRECTED Montelukast [Singulair] Med 08/28/19 21:00 Active 10 mg PO BEDTIME Non-Formulary Medication [NF Drug] Med 08/28/19 09:00 Active 0 each EYEBOTH BID Ondansetron [Zofran] Med 08/27/19 17:41 Active 4 mg IVPUSH Q8H PRN Patient's Own Medication [Ptom] Med 08/29/19 21:00 Active 0 each VAG SuTuTh@2100 Sodium Chloride 0.9% [Saline Flush] Med 08/27/19 16:35 Active 10 ml FLUSH ASDIRECTED PRN Venlafaxine [Effexor XR] Med 08/28/19 09:00 Active 150 mg PO DAILY estradioL Med 08/28/19 21:00 Active 1 mg PO BEDTIME Peripheral IV Insertion Adult [OM.PC] Routine Oth 08/27/19 16:35 Ordered Peripheral IV Insertion Adult [OM.PC] Stat Oth 08/27/19 15:13 Ordered SCD [Sequential Compression Device] [OM.PC] Routine Oth 08/28/19 08:51 Ordered Schedule Procedure [COMM] Stat Oth 08/27/19 18:42 Ordered Resuscitation Status Routine Resus Stat 08/27/19 18:18 Ordered Medication Orders Amoxicillin (Amoxil) 500 mg PO BID [facility] Last Admin: 08/28/19 08:29 Dose: 500 mg Admin: 08/27/19 22:29 Dose: 500 mg Cholecalciferol (Vitamin D3) 50 mcg PO BID [facility] Last Admin: 08/28/19 08:29 Dose: 50 mcg Estradiol (Estradiol) 1 mg PO BEDTIME [facility] Fluticasone Propionate (Flonase) 0 gm NASBOTH DAILY [facility] Last Admin: 08/28/19 08:30 Dose: 1 spray Hydromorphone HCl (Dilaudid) 0.5 mg IVPUSH Q4H PRN PRN Reason: Pain Lactated Ringer's (Ringers, Lactated) 1,000 mls @ 50 mls/hr IV ASDIRECTED [facility] Last Admin: 08/28/19 09:34 Dose: 50 mls/hr Montelukast Sodium (Singulair) 10 mg PO BEDTIME [facility] Isopto Tears 15 Ml 0 each EYEBOTH BID [facility] Ondansetron HCl (Zofran) 4 mg IVPUSH Q8H PRN PRN Reason: Nausea Estradiol] 12 Mcg 0 each VAG SuTuTh@2100 [facility] Sodium Chloride (Saline Flush) 10 ml FLUSH ASDIRECTED PRN PRN Reason: Keep Vein Open Venlafaxine HCl (Effexor Xr) 150 mg PO DAILY [facility] Last Admin: 08/28/19 08:29 Dose: 150 mg - Assessment Assessment (Free Text/Narrative):: Lower GI Bleeding. EGD negative, colonoscopy showed mild to moderate blood distally but no source was found. No other episodes of ronn blood overnight. Her Hgb has trended down from 12.5--->8.9 --> 8.0. Patient is otherwise stable and asymptomatic. - Plan Plan (Free Text/Narrative):: - Check H/H this afternoon. If stable, she can be discharged home with follow up prepped colonoscopy within 1 month. - If Hgb < 7.5, we will keep her overnight
--- NOTE | 2019-08-28 17:35 | PCM.SN ---
- Free Text/Narrative Note: Patient had no other bloody stools. Hgb was 9.0 this afternoon. She denies any abdominal pain. We will discharge her home today. She is instructed to take supplemental iron pills daily. We will do a prepped colonoscopy on 09/13.
[2019-08-28] MEDS ORDERED: Montelukast 10 MG Tab PO SCH (21:00)
[2019-08-28] MEDS ORDERED: Estradiol 0.5 MG Tab PO SCH (21:00)
[2019-08-29] MEDS ORDERED: ESTRADIOL VAG SCH (21:00)
--- NOTE | 2019-08-30 17:58 | PCM.DCSUM1 ---
Discharge Summary - Hospital Course Free Text/Narrative:: Patient presented with GI bleeding. She underwent urgent EGD/Colonoscopy which did not reveal the source of bleeding. Her bleeding stopped spontaneously and Hgb trended up from 8 to 9. The patient was doing well with stable vitals and was discharged home. She will follow up with another colonoscopy within 1 months. Diagnosis: Stroke: No - Discharge Data Discharge Date: 08/28/19 Discharge Disposition: Home, Self-Care 01 Condition: Good - Referral to Home Health Primary Care Physician: Steph Carter MD - Patient Instructions Diet: Heart Healthy Diet Activity: As Tolerated Driving: May Drive Today Showering/Bathing: May Shower Notify Provider of: Fever, Increased Pain, Nausea and/or Vomiting Other/Special Instructions: Please seek immediate medical attention should the bleeding recur. - Discharge Plan *PRESCRIPTION DRUG MONITORING PROGRAM REVIEWED*: No *COPY OF PRESCRIPTION DRUG MONITORING REPORT IN PATIENT ROXANE: No Home Medications: Home Meds Amoxicillin 500 mg PO BID 06/10/19 [History] estradioL [Estradiol] 1 mg PO BEDTIME 06/10/19 [History] Cholecalciferol (Vitamin D3) [Vitamin D3] 50 mcg PO BID 08/27/19 [History] Montelukast [Singulair] 10 mg PO BEDTIME 08/27/19 [History] Nabumetone [Relafen Ds] 750 mg PO BID PRN 08/27/19 [History] Progesterone, Micronized [Progesterone] 08/27/19 [History] Propylene Glycol/Peg 400 [Systane 0.3-0.4% Eye Drops] 1 drop EYEBOTH BID [History] Triamcinolone Acetonide [Nasacort] 10.8 ml NS BID 08/27/19 [History] Venlafaxine [Venlafaxine HCl ER] 150 mg PO DAILY 08/27/19 [History] estradioL [Estradiol] 12 mcg VG SUTUTH 08/27/19 [History] Oxygen Therapy Mode: Room Air Patient Handouts: Gastrointestinal Bleeding Referrals: Steph Carter MD [Primary Care Provider] - (Follow-up with Primary care provider only as needed.) Barbara Wild MD [Physician] - (Return on 09/[address] Wild.) - Discharge Summary/Plan Comment DC Time >30 min.: Yes - General Info Date of Service: 08/30/19 Admission Dx/Problem (Free Text: Admission Diagnosis/Problem Admission Diagnosis/Problem GI bleed not requiring more than 4 units of blood in 24 hours, ICU, or surgery Functional Status: Reports: Pain Controlled, Tolerating Diet, Ambulating, Urinating - Review of Systems General: Reports: No Symptoms HEENT: Reports: No Symptoms Pulmonary: Reports: No Symptoms Cardiovascular: Reports: No Symptoms Gastrointestinal: Reports: No Symptoms Genitourinary: Reports: No Symptoms Musculoskeletal: Reports: No Symptoms Skin: Reports: No Symptoms Neurological: Reports: No Symptoms - Patient Data Vitals - Most Recent: Last Vital Signs Temp 98.1 F 08/28/19 16:41 Pulse 78 08/28/19 16:41 Resp 18 08/28/19 16:41 BP 107/53 L 08/28/19 16:41 Pulse Ox 91 L 08/28/19 16:41 Weight - Most Recent: 74.571 kg Med Orders - Current: Current Medications Discontinued Medications Acetaminophen (Tylenol) 650 mg PO Q4H PRN PRN Reason: Pain Last Admin: 08/28/19 10:07 Dose: 650 mg Amoxicillin (Amoxil) 500 mg PO BID [facility] Last Admin: 08/28/19 08:29 Dose: 500 mg Artificial Tears (Liquitears 1.4% Ophth Soln) 0 ml EYEBOTH BID [facility] Last Admin: 08/28/19 09:28 Dose: Not Given Cholecalciferol (Vitamin D3) 50 mcg PO BID [facility] Last Admin: 08/28/19 08:29 Dose: 50 mcg Estradiol (Estradiol) 1 mg PO BEDTIME [facility] Fentanyl (Sublimaze) Confirm Administered Dose 100 mcg .ROUTE .STK-MED ONE Stop: 08/27/19 19:32 Fluticasone Propionate (Flonase) 0 gm NASBOTH DAILY [facility] Last Admin: 08/28/19 08:30 Dose: 1 spray Hydromorphone HCl (Dilaudid) 0.5 mg IVPUSH Q4H PRN PRN Reason: Pain Sodium Chloride (Normal Saline) 1,000 mls @ 500 mls/hr IV ONETIME ONE Stop: 08/27/19 17:17 Last Admin: 08/27/19 15:27 Dose: 500 mls/hr Lactated Ringer's (Ringers, Lactated) 1,000 mls @ 75 mls/hr IV ASDIRECTED [facility] Lactated Ringer's (Ringers, Lactated) 1,000 mls @ 125 mls/hr IV ASDIRECTED [facility] Last Admin: 08/28/19 05:14 Dose: 125 mls/hr Lidocaine HCl (Xylocaine-Mpf 1%) Confirm Administered Dose 4 mls @ as directed .ROUTE .ST-MED ONE Stop: 08/27/19 19:33 Lactated Ringer's (Ringers, Lactated) 1,000 mls @ 50 mls/hr IV ASDIRECTED [facility] Last Admin: 08/28/19 09:34 Dose: 50 mls/hr Midazolam HCl (Versed 1 Mg/Ml) Confirm Administered Dose 2 mg .ROUTE .ST-MED ONE Stop: 08/27/19 19:32 Montelukast Sodium (Singulair) 10 mg PO BEDTIME [facility] Isopto Tears 15 Ml 0 each EYEBOTH BID [facility] Last Admin: 08/28/19 10:07 Dose: 1 each Ondansetron HCl (Zofran) 4 mg IVPUSH ONETIME ONE Stop: 08/27/19 15:18 Last Admin: 08/27/19 15:27 Dose: 4 mg Ondansetron HCl (Zofran) 4 mg IVPUSH Q8H PRN PRN Reason: Nausea Ondansetron HCl (Zofran) Confirm Administered Dose 4 mg .ROUTE .STK-MED ONE Stop: 08/27/19 19:32 Estradiol] 12 Mcg 0 each VAG SuTuTh@2100 [facility] Propofol (Diprivan 20 Ml) Confirm Administered Dose 200 mg .ROUTE .STK-MED ONE Stop: 08/27/19 19:32 Propofol (Diprivan 20 Ml) Confirm Administered Dose 200 mg .ROUTE .STK-MED ONE Stop: 08/27/19 19:54 Sodium Chloride (Saline Flush) 10 ml FLUSH ASDIRECTED PRN PRN Reason: Keep Vein Open Last Admin: 08/27/19 15:21 Dose: 10 ml Sodium Chloride (Saline Flush) 10 ml FLUSH ASDIRECTED PRN PRN Reason: Keep Vein Open Sodium Chloride (Normal Saline) Confirm Administered Dose 100 ml .ROUTE .STK- MED ONE Stop: 08/27/19 20:00 Sulindac (Clinoril) 200 mg PO BID PRN PRN Reason: Pain Venlafaxine HCl (Effexor Xr) 150 mg PO DAILY [facility] Last Admin: 08/28/19 08:29 Dose: 150 mg - Exam General: Reports: Alert, Oriented, Cooperative, No Acute Distress HEENT: Reports: Pupils Equal Lungs: Reports: Clear to Auscultation, Normal Respiratory Effort Cardiovascular: Reports: Regular Rate, Regular Rhythm, No Murmurs GI/Abdominal Exam: Normal Bowel Sounds, Soft, Non-Tender, No Organomegaly
== END 2019-08-28 18:35 | disposition home or self-care (01) ==
LOC: JD.ED 14:30 → JD.MS 16:39
PROVIDERS: ADMIT Surgery; ATTEND Surgery
DX: K92.1 Melena (principal); K64.1 Second degree hemorrhoids; Z87.891 Personal history of nicotine dependence; Z91.041 Radiographic dye allergy status; Z88.5 Allergy status to narcotic agent; Z79.2 Long term (current) use of antibiotics; Z79.899 Other long term (current) drug therapy
CPT/HCPCS: 36415; 43235; 45378; 74176; 80053; 85014; 85018; 85025; 85610; 85730; 86850; 86900; 86901; 96361; 96374; 99285; A9270; G0378; J2001; J2250; J2405; J2704; J3010; J7030; J7120; 00813; 99284

== ENCOUNTER 2019-09-13 08:00 | Day surgery (SDC) | payer BC ==
[~2019-09-13 08:00] MED LIST: Lactated Ringers 1,000 ML IV SCH; Lidocaine 1%/Sod Bicarbonate in NS 8.4% 1 ML Syringe IDERM PRN; Sodium Chloride 0.9% 10 ML Syringe FLUSH PRN
--- NOTE | 2019-09-13 08:50 | PCM.PREANE ---
Preanesthetic Assessment - Anesthesia/Transfusion/Family Hx Anesthesia History: Prior Anesthesia Reaction (nausea) Type of Anesthesia Reaction: Excessive Nausea/Vomiting Family History of Anesthesia Reaction: No Transfusion History: No Prior Transfusion(s) - Review of Systems General: No Symptoms Pulmonary: No Symptoms Cardiovascular: No Symptoms Gastrointestinal: No Symptoms, Other (History of GI Bleed, recent conlonoscopy on 08/27/19) Neurological: Headache (Chronic, none today.) Other: Reports: None - Physical Assessment NPO Status Date: 09/12/19 NPO Status Time: 23:00 Vital Signs: Last Vital Signs Temp 36.2 C 09/13/19 08:05 Pulse 65 09/13/19 08:05 Resp 16 09/13/19 08:05 BP 130/70 09/13/19 08:05 Pulse Ox 96 09/13/19 08:05 Height: 1.63 m Weight: 71.214 kg ASA Class: 2 Mental Status: Alert & Oriented x3 Airway Class: Mallampati = 1 Dentition: Reports: Bridge (Upper) Thyro-Mental Finger Breadths: 3 Mouth Opening Finger Breadths: 3 ROM/Head Extension: Full Lungs: Clear to Auscultation, Normal Respiratory Effort Cardiovascular: Regular Rate, Regular Rhythm - Allergies Allergies/Adverse Reactions: Allergies Allergy/AdvReac Type Severity Reaction Status Date / Time Iodinated Contrast Media Allergy Swelling Verified 09/10/19 15:01 [Iodinated Contrast- Oral and IV Dye] latex Allergy Rash Verified 09/10/19 15:01 morphine Allergy Itching Verified 09/10/19 15:01 - Acknowledgements Anesthesia Type Planned: MAC Pt an Appropriate Candidate for the Planned Anesthesia: Yes Alternatives and Risks of Anesthesia Discussed w Pt/Guardian: Yes Pt/Guardian Understands and Agrees with Anesthesia Plan: Yes PreAnesthesia Questionnaire HEENT History: Reports: Impaired Vision, Sinusitis Other HEENT History: glasses Cardiovascular History: Reports: None Respiratory History: Reports: None Gastrointestinal History: Reports: None Genitourinary History: Reports: None Other OB/BYN History: Hot flashes Musculoskeletal History: Reports: Other (See Below) Other Musculoskeletal History: Knee pain Neurological History: Reports: Headaches, Chronic Psychiatric History: Reports: None Endocrine/Metabolic History: Reports: None Hematologic History: Reports: None Immunologic History: Reports: None Oncologic (Cancer) History: Reports: None Dermatologic History: Reports: None - Past Surgical History Head Surgeries/Procedures: Reports: None HEENT Surgical History: Reports: Other (See Below) Other HEENT Surgeries/Procedures: Sinus surgery Cardiovascular Surgical History: Reports: None Respiratory Surgical History: Reports: None GI Surgical History: Reports: Colonoscopy, EGD Female Surgical History: Reports: Hysterectomy, Tubal Ligation Endocrine Surgical History: Reports: None Neurological Surgical History: Reports: None Musculoskeletal Surgical History: Reports: Arthroscopic Knee, Carpal Tunnel, Knee Replacement Oncologic Surgical History: Reports: None Dermatological Surgical History: Reports: None - SUBSTANCE USE Smoking Status *Q: Former Smoker Tobacco Use Within Last Twelve Months: No Second Hand Smoke Exposure: No Recreational Drug Use History: No - HOME MEDS Home Medications: Home Meds Montelukast [Singulair] 10 mg PO BEDTIME 08/27/19 [History] Nabumetone [Relafen Ds] 750 mg PO BID PRN 08/27/19 [History] Progesterone, Micronized [Progesterone] 200 mg PO BEDTIME 08/27/19 [History] Propylene Glycol/Peg 400 [Systane 0.3-0.4% Eye Drops] 1 drop EYEBOTH BID [History] Calcium Carbonate/Vitamin D3 [Calcium 600 + Vit D 200] 2 tab PO DAILY 09/10/19 [ History] Cholecalciferol (Vitamin D3) [Vitamin D3] 2,000 unit PO DAILY 09/10/19 [History] Estradiol [Vagifem] 10 mcg VG SUTUFR 09/10/19 [History] Multivitamin [Daily Multiple Vitamin] 1 tab PO DAILY 09/10/19 [History] Triamcinolone Acetonide [Nasacort] 1 puff NS DAILY PRN 09/10/19 [History] Venlafaxine [Effexor] 150 mg PO DAILY 09/10/19 [History] - CURRENT (IN HOUSE) MEDS Current Meds: Current Medications Lactated Ringer's (Ringers, Lactated) 1,000 mls @ 125 mls/hr IV ASDIRECTED [facility] Stop: 09/13/19 23:00 Last Admin: 09/13/19 08:15 Dose: 125 mls/hr Lidocaine/Sodium Bicarbonate (Buffered Lidocaine 1% In Ns 8.4%) 0.25 ml IDERM ONETIME PRN PRN Reason: Prior to IV Start Stop: 09/13/19 18:00 Last Admin: 09/13/19 08:15 Dose: 0.25 ml Sodium Chloride (Saline Flush) 10 ml FLUSH ASDIRECTED PRN PRN Reason: Keep Vein Open Stop: 09/13/19 18:00
[2019-09-13] MEDS ORDERED: Propofol 200 MG/20 ML SDV ONE ×3 (09:31→10:15)
[2019-09-13] MEDS ORDERED: fentaNYL 100 MCG/2 ML SDV ONE (09:31)
[2019-09-13] MEDS ORDERED: Lidocaine 1% 4 ML ONE (09:31)
[2019-09-13] MEDS ORDERED: Dexamethasone 4 MG/ML SDV ONE (09:32)
[2019-09-13] MEDS ORDERED: Ondansetron 4 MG/2 ML SDV ONE (09:32)
[2019-09-13] MEDS ORDERED: Lactated Ringers 1,000 ML ONE (10:33)
--- NOTE | 2019-09-13 10:55 | PCM48HPAN ---
Post Anesthesia Note - EVALUATION WITHIN 48HRS OF ANESTHETIC Vital Signs in Normal Range: Yes Patient Participated in Evaluation: Yes Respiratory Function Stable: Yes Airway Patent: Yes Cardiovascular Function Stable: Yes Hydration Status Stable: Yes Pain Control Satisfactory: Yes Nausea and Vomiting Control Satisfactory: Yes Mental Status Recovered: Yes Vital Signs: Last Vital Signs Temp 36.2 C 09/13/19 08:05 Pulse 65 09/13/19 08:05 Resp 16 09/13/19 08:05 BP 130/70 09/13/19 08:05 Pulse Ox 96 09/13/19 08:05 1050 117/82 60 16 97% 97F
--- NOTE | 2019-09-13 11:52 | OR ---
DATE OF OPERATION: 09/13/2019 SURGEON: Barbara Wild MD PREOPERATIVE DIAGNOSIS: Lower gastrointestinal bleeding. POSTOPERATIVE DIAGNOSIS: 1. Diverticulosis. 2. Polyps in the sigmoid colon. 3. Internal hemorrhoids. ANESTHESIA: Monitored anesthesia care. OPERATION PERFORMED: Colonoscopy with polypectomy. FINDINGS: See postop diagnosis above. COMPLICATIONS: None. INDICATION AND CONSENT: The patient is a 58-year-old female who was hospitalized about 2-1/2 weeks ago for acute onset of GI bleeding. Emergent colonoscopy at that point did not reveal any source of bleeding and the EGD was negative. Therefore, bleeding stopped spontaneously and the patient was sent home with plans to have a repeat prepped colonoscopy in between 2 weeks and 1 month for definitive diagnosis. The patient therefore presents today for followup colonoscopy. DESCRIPTION OF PROCEDURE: The patient was taken to the procedure room, placed in the left lateral decubitus position. Following induction of monitored anesthesia care, we began colonoscopy with perianal exam which was normal. Digital rectal exam was normal. Then, the scope was inserted through the anus all the way to the cecum. Appendiceal orifice, ileocecal valve were photographed, and slowly the scope was withdrawn. The prep quality was good. At the splenic flexure, there were at least 2 diverticula that were nonbleeding. We continued to withdraw the scope. There were a few scattered diverticulosis in the distal transverse, descending and sigmoid colon as well. In the upper sigmoid colon, there were 3 semi-pedunculated polyps, 2 of these were removed with a cold snare and 1 of them was removed with cold forceps. The polyps were between 3 and 5 mm in size and were all retrieved and sent for pathology examination. We continued to withdraw the scope slowly. The rectum was normal. On retroflexion, the internal hemorrhoids were confirmed and these were nonbleeding. At this point, the air was suctioned out and the scope was withdrawn. There was no immediate complication. I believe the patient's episode of bleeding stemmed from diverticulosis as there were no other abnormalities in the colon that would explain the bleeding. I will recommend the patient use a high-fiber diet to slow the formation of diverticulosis and the patient will follow up in clinic with Nichole in 2 weeks to discuss the pathology results of the polyps. ESTIMATED BLOOD LOSS: MMODAL /[id number] BRIDGETT
== END 2019-09-13 11:35 | disposition home or self-care (01) ==
LOC: JD.SDS 08:00
PROVIDERS: ATTEND Surgery
DX: K57.31 Diverticulosis of large intestine without perforation or abscess with bleeding (principal); D12.5 Benign neoplasm of sigmoid colon; K63.5 Polyp of colon; K64.8 Other hemorrhoids; Z91.041 Radiographic dye allergy status; Z88.5 Allergy status to narcotic agent; Z79.2 Long term (current) use of antibiotics; Z79.890 Hormone replacement therapy; Z90.710 Acquired absence of both cervix and uterus; Z87.891 Personal history of nicotine dependence; Z91.040 Latex allergy status
CPT/HCPCS: 45380; 45385; J1100; J2001; J2405; J2704; J7120; 00811; J3010

== ENCOUNTER 2020-04-03 16:30 | Emergency (ER) | payer BC ==
[2020-04-03] MEDS ORDERED: predniSONE 20 MG Tab PO ONE (16:49)
[2020-04-03] MEDS ORDERED: predniSONE 10 MG Tab PO ONE (16:51)
--- NOTE | 2020-04-03 16:58 | EDM.PDOC ---
ED HPI GENERAL MEDICAL PROBLEM - General Chief Complaint: Upper Extremity Injury/Pain Stated Complaint: RIGHT HAND PAIN FOR THE PAST 3 DAYS Time Seen by Provider: 04/03/20 16:41 Source of Information: Reports: Patient History Limitations: Reports: No Limitations - History of Present Illness INITIAL COMMENTS - FREE TEXT/NARRATIVE: Patient is a 59-year-old female presenting to the emergency department with complaints of pain and swelling to the second and third MCP joints in her right hand. She states that she has had this occur in the past. She has a history of arthritis, however she is unsure if it is RA or osteoarthritis. She states she normally gets cortisone injections in his hand and is due for an injection. She denies a known history of gout. There is been no known injury to the hand. She has been taking Tylenol for pain with little relief. Right Hand Pain Score (Numeric/FACES): 8 - Related Data Allergies Allergy/AdvReac Type Severity Reaction Status Date / Time Iodinated Contrast Media Allergy Swelling Verified 04/03/20 16:42 [Iodinated Contrast- Oral and IV Dye] latex Allergy Rash Verified 04/03/20 16:42 morphine Allergy Itching Verified 04/03/20 16:42 Home Meds: Home Meds Montelukast [Singulair] 10 mg PO BEDTIME 08/27/19 [History] Nabumetone [Relafen Ds] 750 mg PO BID PRN 08/27/19 [History] Progesterone, Micronized [Progesterone] 200 mg PO BEDTIME 08/27/19 [History] Propylene Glycol/Peg 400 [Systane 0.3-0.4% Eye Drops] 1 drop EYEBOTH BID 08/27/19 [History] Calcium Carbonate/Vitamin D3 [Calcium 600 + Vit D 200] 2 tab PO DAILY 09/10/19 [History] Cholecalciferol (Vitamin D3) [Vitamin D3] 2,000 unit PO DAILY 09/10/19 [History] Multivitamin [Daily Multiple Vitamin] 1 tab PO DAILY 09/10/19 [History] Triamcinolone Acetonide [Nasacort] 1 puff NS DAILY PRN 09/10/19 [History] Venlafaxine [Effexor] 150 mg PO DAILY 09/10/19 [History] estradioL [Vagifem] 10 mcg VG SUTUFR 09/10/19 [History] Past Medical History HEENT History: Reports: Impaired Vision, Sinusitis Other HEENT History: glasses Cardiovascular History: Reports: None Respiratory History: Reports: None Gastrointestinal History: Reports: None Genitourinary History: Reports: None Other HEAD SHIPPER History: Hot flashes Musculoskeletal History: Reports: Other (See Below) Other Musculoskeletal History: Knee pain Neurological History: Reports: Headaches, Chronic Psychiatric History: Reports: None Endocrine/Metabolic History: Reports: Hypothyroidism Hematologic History: Reports: None Immunologic History: Reports: None Oncologic (Cancer) History: Reports: None Dermatologic History: Reports: None - Past Surgical History Head Surgeries/Procedures: Reports: None HEENT Surgical History: Reports: Naso-Sinus Surgery, Other (See Below) Other HEENT Surgeries/Procedures: Sinus surgery Cardiovascular Surgical History: Reports: None Respiratory Surgical History: Reports: None GI Surgical History: Reports: Colonoscopy, EGD Female Surgical History: Reports: Hysterectomy, Tubal Ligation Endocrine Surgical History: Reports: None Neurological Surgical History: Reports: None Musculoskeletal Surgical History: Reports: Arthroscopic Knee, Carpal Tunnel, Knee Replacement Oncologic Surgical History: Reports: None Dermatological Surgical History: Reports: None Social & Family History - Family History Family Medical History: Noncontributory - Tobacco Use Smoking Status *Q: Former Smoker Used Tobacco, but Quit: Yes Month/Year Tobacco Last Used: 1984 - Caffeine Use Caffeine Use: Reports: Soda, Tea Other Caffeine Use: coke/dr. nelson daily - Recreational Drug Use Recreational Drug Use: No Review of Systems - Review of Systems Review Of Systems: Comprehensive ROS is negative, except as noted in HPI. ED EXAM, GENERAL - Physical Exam Exam: See Below Exam Limited By: No Limitations General Appearance: Alert, WD/WN, No Apparent Distress Respiratory/Chest: No Respiratory Distress, Lungs Clear, Normal Breath Sounds, No Accessory Muscle Use, Chest Non-Tender Cardiovascular: Normal Peripheral Pulses, Regular Rate, Rhythm, No Edema, No Gallop, No JVD, No Murmur, No Rub Extremities: Other (Redness, warmth, and swelling to the second and third MCP joints of the right hand.) Neurological: Alert, Oriented, CN II-XII Intact, Normal Cognition, Normal Gait, Normal Reflexes, No Motor/Sensory Deficits Psychiatric: Normal Affect, Normal Mood Skin Exam: Warm, Dry, Intact, Normal Color, No Rash Course - Vital Signs Last Recorded V/S: Last Vital Signs Temp 96.9 F 04/03/20 16:39 Pulse 73 04/03/20 16:39 Resp 18 04/03/20 16:39 BP 146/79 H 04/03/20 16:39 Pulse Ox 97 04/03/20 16:39 - Orders/Labs/Meds Meds: Medications Discontinued Medications Generic Name Dose Route Start Last Admin Trade Name Blayne PRN Reason Stop Dose Admin Prednisone 20 mg 04/03/20 16:49 Prednisone PO 04/03/20 16:50 ONETIME ONE Prednisone 40 mg 04/03/20 16:51 Prednisone PO 04/03/20 16:52 ONETIME ONE - Re-Assessments/Exams Free Text/Narrative Re-Assessment/Exam: 04/03/20 16:55 Patient is a 59-year-old female presenting to the ER with complaints of pain to her right hand. On exam, she does have redness, warmth, and swelling to the second and third MCP joints in her right hand. She denies a history of gout, however this does have the appearance of gout. She states that she had cortisone injections in this hand in the past with Dr. Alonso at [place]. She is due to have her next injection done. We will start on a course of prednisone. 40 mg of prednisone will be given this evening and then she will be given a prescription for 20 mg twice daily for 5 days and then 20 mg once daily for 5 days. Discharge instructions as documented. Departure - Departure Time of Disposition: 16:56 Disposition: Home, Self-Care 01 Condition: Good Clinical Impression: Hand arthritis - Discharge Information *PRESCRIPTION DRUG MONITORING PROGRAM REVIEWED*: No *COPY OF PRESCRIPTION DRUG MONITORING REPORT IN PATIENT ROXANE: No Instructions: Osteoarthritis Referrals: Steph Carter MD [Primary Care Provider] - Additional Instructions: You were seen in the emergency department today for pain and swelling to your right hand. While in the ER, you received prednisone 40 mg by mouth. A prescription for prednisone 20 mg twice daily for 5 days followed by once daily for 5 days has been provided. Take this medication as prescribed. You may also use Tylenol as needed for pain. Apply ice to the area intermittently for the next few days would also be beneficial. Recommend that you call and schedule appointment with Dr. Alonso at his next available visit. Return to the ER as needed. Sepsis Event Note (ED) - Evaluation Sepsis Screening Result: No Definite Risk - Focused Exam Vital Signs: Vital Signs Temp Pulse Resp BP Pulse Ox 04/03/20 16:39 96.9 F 73 18 146/79 H 97
== END 2020-04-03 17:12 | disposition home or self-care (01) ==
LOC: JD.ED 16:30
DX: M19.041 Primary osteoarthritis, right hand (principal); Z88.5 Allergy status to narcotic agent; Z91.040 Latex allergy status; Z91.041 Radiographic dye allergy status; Z87.891 Personal history of nicotine dependence
CPT/HCPCS: 99283; J7512

== ENCOUNTER 2020-06-17 13:22 | Emergency (ER) | payer BC ==
[2020-06-17] MEDS ORDERED: Diphtheria,Pertussis(Acell),Tetanus Vaccine 0.5 ML Syringe IM ONE (14:04)
[2020-06-17] MEDS ORDERED: HYDROmorphone 0.5 MG/0.5 ML Syringe IVPUSH ONE (14:04)
[2020-06-17] MEDS ORDERED: Sodium Chloride 0.9% 10 ML Syringe FLUSH PRN (14:05)
[2020-06-17] MEDS ORDERED: ceFAZolin 1 GM in Premix Bag 1 BAG IV ONE (14:05)
[2020-06-17] MEDS ORDERED: Lidocaine 1% 50 ML MDV INJECT ONE (14:30)
[2020-06-17] MEDS ORDERED: Ondansetron 4 MG/2 ML SDV IVPUSH ONE (14:46)
--- NOTE | 2020-06-17 15:11 | EDM.PDOC ---
ED HPI GENERAL MEDICAL PROBLEM - General Chief Complaint: Laceration Stated Complaint: R HAND LAC Time Seen by Provider: 06/17/20 13:29 Source of Information: Reports: Patient, RN Notes Reviewed - History of Present Illness INITIAL COMMENTS - FREE TEXT/NARRATIVE: 59 yr old female comes in with deep, large lac thenar aspect of R thumb. 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 She is not sure how it happened. She is R handed. Unsure of last tetanus. Large amount of bleeding initially that was controlled with pressure. Right Hand Pain Score (Numeric/FACES): 7 - Related Data Allergies Allergy/AdvReac Type Severity Reaction Status Date / Time Iodinated Contrast Media Allergy Swelling Verified 04/03/20 16:42 [Iodinated Contrast- Oral and IV Dye] latex Allergy Rash Verified 04/03/20 16:42 morphine Allergy Itching Verified 04/03/20 16:42 Home Meds: Home Meds Montelukast [Singulair] 10 mg PO BEDTIME 08/27/19 [History] Progesterone, Micronized [Progesterone] 200 mg PO BEDTIME 08/27/19 [History] Propylene Glycol/Peg 400 [Systane 0.3-0.4% Eye Drops] 1 drop EYEBOTH BID 08/27/19 [History] Calcium Carbonate/Vitamin D3 [Calcium 600 + Vit D 200] 2 tab PO BID 09/10/19 [History] Multivitamin [Daily Multiple Vitamin] 1 tab PO DAILY 09/10/19 [History] Triamcinolone Acetonide [Nasacort] 1 puff NS DAILY PRN 09/10/19 [History] Venlafaxine [Effexor] 150 mg PO DAILY 09/10/19 [History] estradioL [Vagifem] 12 mcg VG SUTUFR 09/10/19 [History] Cholecalciferol (Vitamin D3) [Vitamin D3] 50 mcg PO BID 04/03/20 [History] Fexofenadine [Daniela] 180 mg PO DAILY 04/03/20 [History] Fluticasone Propionate [Flovent] 1 spray JOYCE DAILY 04/03/20 [History] Levothyroxine Sodium [Tirosint] 25 mcg PO DAILY 04/03/20 [History] Psyllium Husk [Metamucil] 1 cap PO BID 04/03/20 [History] estradioL [Estradiol] 1 mg PO DAILY 04/03/20 [History] cephALEXin [Cephalexin] 500 mg PO TID #20 capsule 06/17/20 [Rx] Past Medical History HEENT History: Reports: Impaired Vision, Sinusitis Other HEENT History: glasses Cardiovascular History: Reports: None Respiratory History: Reports: None Gastrointestinal History: Reports: None Genitourinary History: Reports: None 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: 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 Musculoskeletal History: Reports: Other (See Below) Other Musculoskeletal History: Knee pain Neurological History: Reports: Headaches, Chronic Psychiatric History: Reports: None Endocrine/Metabolic History: Reports: Hypothyroidism Hematologic History: Reports: None Immunologic History: Reports: None Oncologic (Cancer) History: Reports: None Dermatologic History: Reports: None - Past Surgical History Head Surgeries/Procedures: Reports: None HEENT Surgical History: Reports: Naso-Sinus Surgery, Other (See Below) Other HEENT Surgeries/Procedures: Sinus surgery Cardiovascular Surgical History: Reports: None Respiratory Surgical History: Reports: None GI Surgical History: Reports: Colonoscopy, EGD Female Surgical History: Reports: Hysterectomy, Tubal Ligation Endocrine Surgical History: Reports: None Neurological Surgical History: Reports: None Musculoskeletal Surgical History: Reports: Arthroscopic Knee, Carpal Tunnel, Knee Replacement Other Musculoskeletal Surgeries/Procedures:: carpal tunnel x2 Oncologic Surgical History: Reports: None Dermatological Surgical History: Reports: None Social & Family History - Family History Family Medical History: No Pertinent Family History - Tobacco Use Tobacco Use Status *Q: Never Tobacco User Second Hand Smoke Exposure: No - Caffeine Use Caffeine Use: Reports: Coffee Other Caffeine Use: coke/dr. nelson daily - Recreational Drug Use Recreational Drug Use: No ED ROS GENERAL - Review of Systems Review Of Systems: See Below Constitutional: Reports: No Symptoms ED EXAM, SKIN/RASH Exam: See Below General Appearance: Alert, Mild Distress Head: Atraumatic Neck: Supple Respiratory/Chest: No Respiratory Distress Extremities: Other (extremely large, deep flap laceration thenar aspect of R thumb, approx. 9 or more cm circum.) Neurological: Alert, Oriented, No Motor/Sensory Deficits ED SKIN PROCEDURES - Laceration/Wound Repair Right Anterior Hand Appearance: Other (large deep flap lac R hand, about 9 cm circumference length) Distal NVT: Neuro & Vascular Intact, Other (there is what looks like lacerated tendon deep in the thenar muscle, ragged, difficult to know for sure) Anesthetic Type: Local Local Anesthesia - Lidocaine (Xylocaine): 1% Plain Skin Prep: Chlorhexidine (Hibiciens), Saline Exploration/Debridement/Repair: Wound Explored, In a Bloodless Field, No Foreign Material Found Suture Size: 3-0 # of Sutures: 23 Suture Type: Nylon # of Sutures: 23 Course - Vital Signs Last Recorded V/S: Last Vital Signs Temp 98.0 F 06/17/20 13:44 Pulse 69 06/17/20 13:44 Resp 20 06/17/20 13:44 BP 139/95 H 06/17/20 13:44 Pulse Ox 100 06/17/20 13:44 - Orders/Labs/Meds Meds: Medications Discontinued Medications Generic Name Dose Route Start Last Admin Trade Name Fredian PRN Reason Stop Dose Admin Diphtheria/Tetanus/Acell Pertussis 0.5 ml 06/17/20 14:04 06/17/20 14:50 Adacel IM 06/17/20 14:05 0.5 ml .ONCE ONE Administration Hydromorphone HCl 0.5 mg 06/17/20 14:04 06/17/20 14:13 Dilaudid IVPUSH 06/17/20 14:05 0.5 mg ONETIME ONE Administration Cefazolin Sodium/Dextrose 1 gm 50 mls @ 100 mls/hr 06/17/20 14:05 06/17/20 14:15 / Premix IV 06/17/20 14:34 100 mls/hr ONETIME ONE Administration Lidocaine HCl 50 ml 06/17/20 14:30 06/17/20 14:42 Xylocaine 1% INJECT 06/17/20 14:31 50 ml ONETIME ONE Administration Ondansetron HCl 4 mg 06/17/20 14:46 06/17/20 14:48 Zofran IVPUSH 06/17/20 14:47 4 mg ONETIME ONE Administration Sodium Chloride 10 ml 06/17/20 14:05 06/17/20 14:14 Saline Flush FLUSH 10 ml ASDIRECTED PRN Administration Keep Vein Open - Re-Assessments/Exams Free Text/Narrative Re-Assessment/Exam: 06/19/20 08:[address] 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 He does recomend closure, repair for now, they will see her in follow up early this week. Discharge instr. as documented. Departure - Departure Time of Disposition: 16:42 Disposition: Home, Self-Care 01 Condition: Fair Clinical Impression: Hand laceration Qualifiers: Encounter type: initial encounter Foreign body presence: without foreign body Laterality: right Qualified Code(s): S61.411A - Laceration without foreign body of right hand, initial encounter - Discharge Information Prescriptions: cephALEXin [Cephalexin] 500 mg PO TID #20 capsule Instructions: Laceration Care, Adult, [id number] Referrals: Steph Carter MD [Primary Care Provider] - Forms: ED Department Discharge, ED Return to Work/School Form Additional Instructions: Pressure dressing. Keep dressing dry and clean. Ice packs off and on this evening and tomorrow. Try keep hand elevated above your chest as much as possible. Cephalexin antibiotic 500 mg 3 times daily for 1 week or until gone. Start that this evening. Prescription has been sent electronically to [facility]. See Orthopedist or [facility] Sur[facility] [place] early next week, first available appointment. Call [phone] first thing Friday morning for appointment. You may alternate tylenol and ibuprofen if needed for pain. Sepsis Event Note (ED) - Evaluation Sepsis Screening Result: No Definite Risk
--- NOTE | 2020-06-19 09:24 | CR ---
PROCEDURE INFORMATION: Exam: XR Right Finger(s) Exam date and time: 06/17/2020 2:34 PM Age: 59 years old Clinical indication: Injury or trauma; Other: Deep band saw lac base of right thumb; Laceration; Hand TECHNIQUE: Imaging protocol: XR Right fingers. Views: Minimum 2 views. COMPARISON: No relevant prior studies available. FINDINGS: Bones/joints: There is no evidence of acute fracture. There is no evidence of joint malalignment or dislocation. Degenerative changes of the interphalangeal joint present. Soft tissues: There are no soft tissue masses or fluid collections. Soft tissue laceration noted along the base of the thumb. IMPRESSION: 1. No evidence of acute fracture. 2. No evidence of acute dislocation. 3. Soft tissue laceration noted along the base of the thumb. Thank you for allowing us to participate in the care of your patient. Dictated and Authenticated by: Flo Self DO 06/17/2020 4:08 PM Central Time ([place] & [place]) [place]
== END 2020-06-17 17:16 | disposition home or self-care (01) ==
LOC: JD.ED 13:22
DX: S61.411A Laceration without foreign body of right hand, initial encounter (principal); E03.9 Hypothyroidism, unspecified; Z23 Encounter for immunization; Z91.041 Radiographic dye allergy status; Z88.5 Allergy status to narcotic agent; Z91.040 Latex allergy status; Z79.899 Other long term (current) drug therapy; W27.0XXA Contact with workbench tool, initial encounter
CPT/HCPCS: 12004; 73140-26-F5; 73140-F5; 90471; 90715; 96365; 96375; 99283; 99283-25; J0690; J1170; J2001; J2405

== ENCOUNTER 2021-09-21 04:19 | Emergency (ER) | payer BC ==
[2021-09-21] MEDS ORDERED: Ondansetron 4 MG Tab.DIS PO ONE (04:55)
[2021-09-21] MEDS ORDERED: Alum Hydrox/Mag Hydrox/Simeth 30 ML, Lidocaine 2% 15 ML PO ONE ×2 (04:55)
[2021-09-21] MEDS ORDERED: Famotidine 20 MG Tab PO ONE (04:56)
== END 2021-09-21 07:00 | disposition home or self-care (01) ==
LOC: JD.ED 04:19
DX: R10.13 Epigastric pain (principal); R11.10 Vomiting, unspecified; E03.9 Hypothyroidism, unspecified; Z87.891 Personal history of nicotine dependence; Z79.899 Other long term (current) drug therapy; Z88.5 Allergy status to narcotic agent; Z91.041 Radiographic dye allergy status; Z91.040 Latex allergy status
CPT/HCPCS: 36415; 71045; 80053; 84484; 85025; 85610; 93005; 99284; A9270; 93010

== ENCOUNTER 2022-12-24 09:47 | Inpatient (IN) | payer BC ==
[~2022-12-24 09:47] MED LIST changes: -Lactated Ringers 1,000 ML IV SCH; -Lidocaine 1%/Sod Bicarbonate in NS 8.4% 1 ML Syringe IDERM PRN; -Sodium Chloride 0.9% 10 ML Syringe FLUSH PRN; +metroNIDAZOLE/Normal Saline 500 MG in Premix Bag 1 BAG IV SCH
[2022-12-24] MEDS ORDERED: Lidocaine 1%/Sod Bicarbonate in NS 8.4% 1 ML Syringe IDERM PRN (10:18)
[2022-12-24] MEDS ORDERED: Sodium Chloride 0.9% 10 ML Syringe FLUSH PRN (10:18)
[2022-12-24 10:27] LABS: BASOPHILS ABSOLUTE AUTO 0.03 K/mm3 (0.01-0.08); BASOPHILS PERCENT AUTO 0.5 % (0.1-1.2); EOSINOPHILS ABSOLUTE AUTO 0.12 K/mm3 (0.04-0.36); EOSINOPHILS PERCENT AUTO 2.2 (0.7-5.8); HEMATOCRIT 45.1 % (34.1-44.9); HEMOGLOBIN 15.3 gm/dl (11.2-15.7); LYMPHOCYTES ABSOLUTE AUTO 1.64 K/mm3 (1.18-3.74); LYMPHOCYTES PERCENT AUTO 29.6 % (19.3-51.7); MEAN CORPUSCULAR HEMOGLOBIN 29.4 pg (25.6-32.2); MEAN CORPUSCULAR HGB CONC 33.9 g/dl (32.2-35.5); MEAN CORPUSCULAR VOLUME 86.6 fl (79.4-94.8); MEAN PLATELET VOLUME 9.5 fl (9.4-12.3); MONOCYTES ABSOLUTE AUTO 0.29 K/mm3 (0.24-0.36); MONOCYTES PERCENT AUTO 5.2 % (4.7-12.5); NEUTROPHILS ABSOLUTE AUTO 3.46 K/mm3 (1.56-6.13); NEUTROPHILS PERCENT AUTO 62.5 % (34.0-71.1); PLATELET COUNT,PLT 381 K/mm3 (182-369); RED BLOOD CELL COUNT 5.21 M/mm3 (3.98-5.22); WHITE BLOOD CELL COUNT,WBC 5.54 K/mm3 (3.98-10.04)
[2022-12-24] MEDS ORDERED: Sodium Chloride 0.9% 10 ML Syringe FLUSH SCH (10:30)
[2022-12-24] MEDS ORDERED: Lactated Ringers 1,000 ML IV SCH ×2 (10:30→14:00)
[2022-12-24 10:45] LABS: CALCIUM 9.6 mg/dL (8.5-10.1); EST CRCL DRUG DOSING (CG) 51.57 mL/min
[2022-12-24] MEDS ORDERED: Lidocaine 1% 4 ML ONE (10:56)
[2022-12-24] MEDS ORDERED: Propofol 200 MG/20 ML SDV ONE (10:56)
[2022-12-24] MEDS ORDERED: Ondansetron 4 MG/2 ML SDV ONE (10:56)
[2022-12-24] MEDS ORDERED: Rocuronium 50 MG/5 ML Vial ONE ×2 (10:56→13:00)
[2022-12-24] MEDS ORDERED: Midazolam 1 MG/ML 2 ML SDV ONE (10:57)
[2022-12-24] MEDS ORDERED: fentaNYL 100 MCG/2 ML SDV ONE (10:57)
[2022-12-24] MEDS ORDERED: fentaNYL 100 MCG/2 ML SDV IVPUSH PRN (11:08)
[2022-12-24] MEDS ORDERED: Ondansetron 4 MG/2 ML SDV IVPUSH PRN (11:08)
[2022-12-24] MEDS ORDERED: HYDROmorphone 0.5 MG/0.5 ML Syringe IVPUSH PRN (11:08)
[2022-12-24] MEDS ORDERED: ceFAZolin 1 GM Vial ONE (11:30)
[2022-12-24] MEDS ORDERED: ceFAZolin 2 GM Vial ONE (12:00)
[2022-12-24] MEDS: Lidocaine 1% with EPINEPHrine 1:100,000 20 ML MDV ONE ×3 (12:08→16:41)
[2022-12-24] MEDS ORDERED: HYDROmorphone 0.5 MG/0.5 ML Syringe ONE (12:21)
[2022-12-24] MEDS ORDERED: Sugammadex Sodium 200 MG/2 ML VIAL ONE (13:04)
[2022-12-24] MEDS ORDERED: Ketorolac 30 MG/ML SDV ONE (13:05)
[2022-12-24] MEDS ORDERED: Lidocaine 1% with EPINEPHrine 1:100,000 20 ML MDV ONE (13:17)
[2022-12-24] MEDS ORDERED: Ondansetron 8 MG in Sodium Chloride 0.9% 50 ML IV PRN (16:15)
[2022-12-24] MEDS: HYDROmorphone 0.5 MG/0.5 ML Syringe IVPUSH PRN ×2 (16:50→20:36)
[2022-12-24] MEDS: Lactated Ringers 1,000 ML IV SCH (16:50)
[2022-12-24] MEDS: Simethicone 80 MG Tab.Chew PO SCH (20:36)
[2022-12-24] MEDS: Ondansetron 8 MG in Sodium Chloride 0.9% 50 ML IV PRN (21:04)
[2022-12-24] MEDS ORDERED: Promethazine 25 MG in Sodium Chloride 0.9% 50 ML IV ONE (22:30)
[2022-12-24] MEDS ORDERED: Acetaminophen/oxyCODONE 325-5 MG Tab PO PRN (22:31)
[2022-12-24] MEDS: Acetaminophen 325 MG Tab PO PRN (23:56)
[2022-12-25] MEDS: Ondansetron 8 MG in Sodium Chloride 0.9% 50 ML IV PRN (04:37)
[2022-12-25] MEDS: Acetaminophen 325 MG Tab PO PRN (05:29)
[2022-12-25 06:09] LABS: BASOPHILS ABSOLUTE AUTO 0.01 K/mm3 (0.01-0.08); BASOPHILS PERCENT AUTO 0.1 % (0.1-1.2); EOSINOPHILS ABSOLUTE AUTO 0.03 K/mm3 (0.04-0.36); EOSINOPHILS PERCENT AUTO 0.2 (0.7-5.8); HEMATOCRIT 40.4 % (34.1-44.9); IMMATURE GRAN ABSOLUTE AUTO 0.02 K/mm3 (0.00-0.10); IMMATURE GRAN PERCENT AUTO 0.1 % (<=1.0); LYMPHOCYTES ABSOLUTE AUTO 1.21 K/mm3 (1.18-3.74); LYMPHOCYTES PERCENT AUTO 8.9 % (19.3-51.7); MEAN CORPUSCULAR HEMOGLOBIN 29.3 pg (25.6-32.2); MEAN CORPUSCULAR HGB CONC 33.4 g/dl (32.2-35.5); MEAN CORPUSCULAR VOLUME 87.8 fl (79.4-94.8); MEAN PLATELET VOLUME 9.8 fl (9.4-12.3); MONOCYTES ABSOLUTE AUTO 0.73 K/mm3 (0.24-0.36); MONOCYTES PERCENT AUTO 5.4 % (4.7-12.5); NEUTROPHILS ABSOLUTE AUTO 11.63 K/mm3 (1.56-6.13); NEUTROPHILS PERCENT AUTO 85.3 % (34.0-71.1); PLATELET COUNT,PLT 346 K/mm3 (182-369); WHITE BLOOD CELL COUNT,WBC 13.63 K/mm3 (3.98-10.04)
[2022-12-25 06:22] LABS: HEMOGLOBIN 13.5 gm/dl (11.2-15.7)
[2022-12-25] MEDS: traMADol 50 MG Tab PO PRN ×3 (07:50→16:46)
[2022-12-25] MEDS: Simethicone 80 MG Tab.Chew PO SCH ×3 (08:53→20:24)
[2022-12-25] MEDS: Ketorolac 30 MG/ML SDV IVPUSH SCH ×3 (11:39→18:45)
[2022-12-25] MEDS: Lactated Ringers 1,000 ML IV SCH (13:05)
[2022-12-25] MEDS: Gabapentin 600 MG Tab PO SCH (20:24)
[2022-12-25] MEDS ORDERED: traZODone 50 MG Tab PO ONE (22:01)
[2022-12-26] MEDS: Acetaminophen 325 MG Tab PO PRN ×3 (01:05→20:16)
[2022-12-26] MEDS: Ketorolac 30 MG/ML SDV IVPUSH SCH ×5 (04:03→16:06)
[2022-12-26] MEDS: Simethicone 80 MG Tab.Chew PO SCH ×3 (09:00→20:09)
[2022-12-26] MEDS: traMADol 50 MG Tab PO PRN (09:38)
[2022-12-26] MEDS: Levothyroxine 50 MCG Tab PO SCH (12:28)
[2022-12-26] MEDS: Gabapentin 600 MG Tab PO SCH (20:17)
[2022-12-26] MEDS ORDERED: traZODone 50 MG Tab PO ONE (21:11)
[2022-12-27] MEDS: Ketorolac 30 MG/ML SDV IVPUSH SCH ×2 (01:05→04:51)
[2022-12-27] MEDS: Acetaminophen 325 MG Tab PO PRN (04:05)
[2022-12-27] MEDS: Lactated Ringers 1,000 ML IV SCH ×2 (04:34→20:48)
[2022-12-27] MEDS ORDERED: Piperacillin/Tazobactam 4.5 GM in Sodium Chloride 0.9% 100 ML IV ONE (04:41)
[2022-12-27] MEDS ORDERED: VANCOmycin 1.5 GM/300 ML 1.5 GM in Premix Bag 1 BAG IV ONE (04:42)
[2022-12-27 04:47] LABS: BASOPHILS ABSOLUTE AUTO 0.01 K/mm3 (0.01-0.08); BASOPHILS PERCENT AUTO 0.1 % (0.1-1.2); EOSINOPHILS ABSOLUTE AUTO 0.03 K/mm3 (0.04-0.36); EOSINOPHILS PERCENT AUTO 0.2 (0.7-5.8); HEMATOCRIT 38.6 % (34.1-44.9); HEMOGLOBIN 12.8 gm/dl (11.2-15.7); IMMATURE GRAN ABSOLUTE AUTO 0.03 K/mm3 (0.00-0.10); IMMATURE GRAN PERCENT AUTO 0.2 % (<=1.0); LYMPHOCYTES ABSOLUTE AUTO 1.01 K/mm3 (1.18-3.74); LYMPHOCYTES PERCENT AUTO 6.3 % (19.3-51.7); MEAN CORPUSCULAR HEMOGLOBIN 29.3 pg (25.6-32.2); MEAN CORPUSCULAR HGB CONC 33.2 g/dl (32.2-35.5); MEAN CORPUSCULAR VOLUME 88.3 fl (79.4-94.8); MEAN PLATELET VOLUME 9.6 fl (9.4-12.3); MONOCYTES ABSOLUTE AUTO 0.65 K/mm3 (0.24-0.36); NEUTROPHILS ABSOLUTE AUTO 14.34 K/mm3 (1.56-6.13); NEUTROPHILS PERCENT AUTO 89.2 % (34.0-71.1); PLATELET COUNT,PLT 284 K/mm3 (182-369); RED BLOOD CELL COUNT 4.37 M/mm3 (3.98-5.22); WHITE BLOOD CELL COUNT,WBC 16.07 K/mm3 (3.98-10.04)
[2022-12-27 05:09] LABS: A/G RATIO 0.8 (1-2); ALBUMIN 3.1 g/dl (3.4-5.0); ANION GAP 9.6 (5-15); BILIRUBIN TOTAL 0.8 mg/dL (0.2-1.0); BUN/CREATININE RATIO 6.4 (14-18); CALCIUM 9.1 mg/dL (8.5-10.1); CREATININE 1.4 mg/dL (0.55-1.02); EST CRCL DRUG DOSING (CG) 36.73 mL/min; POTASSIUM,K 3.6 mEq/L (3.5-5.1); PROTEIN TOTAL,TP 7.1 g/dl (6.4-8.2)
[2022-12-27 05:12] LABS: LACTIC ACID 1.7 mmol/L (0.4-2.0)
[2022-12-27] MEDS ORDERED: fentaNYL 100 MCG/2 ML SDV ONE ×2 (05:53→07:14)
[2022-12-27] MEDS ORDERED: Lidocaine 1% 4 ML ONE (05:53)
[2022-12-27] MEDS ORDERED: Propofol 200 MG/20 ML SDV ONE (05:53)
[2022-12-27] MEDS ORDERED: Succinylcholine 200 MG/10 ML MDV ONE (05:56)
[2022-12-27] MEDS ORDERED: Rocuronium 50 MG/5 ML Vial ONE (05:56)
[2022-12-27] MEDS ORDERED: Bupivacaine 0.5%/EPINEPHrine 1:200,000 50 ML MDV ONE (06:09)
[2022-12-27] MEDS ORDERED: Ondansetron 4 MG/2 ML SDV ONE (06:45)
[2022-12-27] MEDS ORDERED: Dexamethasone 4 MG/ML 5 ML MDV ONE (06:45)
[2022-12-27] MEDS ORDERED: Methylene Blue 1% 10 ML SDV ONE (07:23)
[2022-12-27] MEDS ORDERED: ceFAZolin 1 GM Vial ONE (07:32)
[2022-12-27] MEDS: ceFAZolin 1 GM Vial ONE ×2 (07:33→07:35)
[2022-12-27 09:42] LABS: BICARBONATE,ARTERIAL 24.8 meq/L (22.0-26.0); O2 SATURATION ARTERIAL 90.7 % (96.0-97.0); PCO2 ARTERIAL 38.8 mmHg (35.0-45.0)
[2022-12-27] MEDS ORDERED: Levothyroxine 50 MCG Tab PO SCH (10:00)
[2022-12-27] MEDS: Levothyroxine 50 MCG Tab PO SCH (10:22)
[2022-12-27] MEDS: cefTRIAXone 2 GM in Sodium Chloride 0.9% 100 ML IV SCH (10:22)
[2022-12-27] MEDS: Simethicone 80 MG Tab.Chew PO SCH ×3 (10:23→20:47)
[2022-12-27] MEDS ORDERED: [UNRECOGNIZED DRUG - OTHER] PO PRN (11:03)
[2022-12-27] MEDS ORDERED: Montelukast 10 MG Tab PO PRN (11:03)
[2022-12-27] MEDS ORDERED: Non-Formulary Medication 1 Each (Triamcinolone Acetonide [Nasacort] 10.8 ML Spray) NASBOTH SCH (11:15)
[2022-12-27] MEDS ORDERED: ESTRADIOL TOP SCH (16:00)
[2022-12-27] MEDS: Ketorolac 30 MG/ML SDV IVPUSH PRN ×2 (17:14→23:53)
[2022-12-27] MEDS: Calcium Carbonate/Vitamin D3 600 MG-200 Units Tab PO SCH ×2 (20:47→20:52)
[2022-12-27] MEDS: Gabapentin 600 MG Tab PO SCH (20:47)
[2022-12-27] MEDS ORDERED: Gabapentin 600 MG Tab PO SCH (21:00)
[2022-12-27] MEDS ORDERED: PROGESTERONE 200 MG PO SCH (21:00)
[2022-12-28] MEDS: Lactated Ringers 1,000 ML IV SCH (05:10)
[2022-12-28 05:56] LABS: EOSINOPHILS PERCENT AUTO 0 (0.7-5.8); HEMOGLOBIN 11.5 gm/dl (11.2-15.7); IMMATURE GRAN ABSOLUTE AUTO 0.02 K/mm3 (0.00-0.10); IMMATURE GRAN PERCENT AUTO 0.1 % (<=1.0); LYMPHOCYTES ABSOLUTE AUTO 0.98 K/mm3 (1.18-3.74); LYMPHOCYTES PERCENT AUTO 6.7 % (19.3-51.7); MEAN CORPUSCULAR HEMOGLOBIN 29.3 pg (25.6-32.2); MEAN CORPUSCULAR HGB CONC 32.9 g/dl (32.2-35.5); MEAN CORPUSCULAR VOLUME 89.1 fl (79.4-94.8); MONOCYTES ABSOLUTE AUTO 0.51 K/mm3 (0.24-0.36); MONOCYTES PERCENT AUTO 3.5 % (4.7-12.5); NEUTROPHILS PERCENT AUTO 89.7 % (34.0-71.1); PLATELET COUNT,PLT 334 K/mm3 (182-369); RED BLOOD CELL COUNT 3.93 M/mm3 (3.98-5.22); WHITE BLOOD CELL COUNT,WBC 14.61 K/mm3 (3.98-10.04)
[2022-12-28 05:59] LABS: A/G RATIO 0.6 (1-2); ALBUMIN 2.4 g/dl (3.4-5.0); ANION GAP 13.6 (5-15); BILIRUBIN TOTAL 0.5 mg/dL (0.2-1.0); BUN/CREATININE RATIO 13.3 (14-18); CALCIUM 9.3 mg/dL (8.5-10.1); CREATININE 0.9 mg/dL (0.55-1.02); EST CRCL DRUG DOSING (CG) 57.14 mL/min; POTASSIUM,K 3.6 mEq/L (3.5-5.1); PROTEIN TOTAL,TP 6.6 g/dl (6.4-8.2)
[2022-12-28] MEDS ORDERED: Levothyroxine 25 MCG Tab PO SCH (06:00)
[2022-12-28] MEDS: Ketorolac 30 MG/ML SDV IVPUSH PRN (06:19)
[2022-12-28] MEDS ORDERED: Fluticasone NASAL Spray 16 GM Bottle NASBOTH SCH (09:00)
[2022-12-28] MEDS ORDERED: Cholecalciferol (Vitamin D3) 25 MCG Tab PO SCH (09:00)
[2022-12-28] MEDS ORDERED: Venlafaxine 75 MG Cap.ER PO SCH (09:00)
[2022-12-28] MEDS ORDERED: LEVOTHYROXINE SODIUM 25 MCG PO SCH (09:00)
[2022-12-28] MEDS ORDERED: Loratadine 10 MG Tab PO SCH (09:00)
[2022-12-28] MEDS: Simethicone 80 MG Tab.Chew PO SCH (09:07)
[2022-12-28] MEDS: Calcium Carbonate/Vitamin D3 600 MG-200 Units Tab PO SCH (09:08)
[2022-12-28] MEDS: cefTRIAXone 2 GM in Sodium Chloride 0.9% 100 ML IV SCH (09:11)
== END 2022-12-28 12:00 | DRG 229 ==
LOC: JD.SDS 09:47 → JD.OB 13:50 → JD.MS 12-27 08:31
PROVIDERS: ADMIT Specialist; ATTEND Specialist
PROC: 0UB70ZZ Excision of Bilateral Fallopian Tubes, Open Approach (ICD-10-PCS; principal; 2022-12-24)
PROC: 0UB20ZZ Excision of Bilateral Ovaries, Open Approach (ICD-10-PCS; 2022-12-24)
PROC: 0WBH4ZZ Excision of Retroperitoneum, Percutaneous Endoscopic Approach (ICD-10-PCS; 2022-12-24)
PROC: 0W9G4ZZ Drainage of Peritoneal Cavity, Percutaneous Endoscopic Approach (ICD-10-PCS; 2022-12-27)
DX: R19.00 Intra-abdominal and pelvic swelling, mass and lump, unspecified site (principal); N13.30 Unspecified hydronephrosis; K66.1 Hemoperitoneum; N99.72 Accidental puncture and laceration of a genitourinary system organ or structure during other procedure; E03.9 Hypothyroidism, unspecified; E78.2 Mixed hyperlipidemia; E55.9 Vitamin D deficiency, unspecified; J32.9 Chronic sinusitis, unspecified; Z79.899 Other long term (current) drug therapy; Z88.5 Allergy status to narcotic agent
CPT/HCPCS: 00840; 36415; 36600; 71045; 71045-26; 71046; 71046-26; 74176; 74176-26; 80048; 80053; 82570; 82803; 83605; 85025; 86850; 86900; 86901; 87040; 93005; 94762; A9270-GY; J0330; J0690; J0696; J1100; J1170; J1885; J2250; J2405; J2543; J2550; J2704; J3010; J3370; J3490; J7120; Q9968

== ENCOUNTER 2023-02-04 11:02 | Emergency (ER) | payer BC ==
[2023-02-04] MEDS ORDERED: Sodium Chloride 0.9% 10 ML Syringe FLUSH PRN (11:18)
[2023-02-04] MEDS ORDERED: Ondansetron 4 MG/2 ML SDV IVPUSH ONE (11:20)
[2023-02-04] MEDS ORDERED: Sodium Chloride 0.9% 1,000 ML IV ONE ×2 (11:28→13:36)
[2023-02-04] MEDS ORDERED: HYDROmorphone 0.5 MG/0.5 ML Syringe IVPUSH ONE ×2 (11:28→13:47)
[2023-02-04 11:57] LABS: BASOPHILS ABSOLUTE AUTO 0.01 K/mm3 (0.01-0.08); BASOPHILS PERCENT AUTO 0.1 % (0.1-1.2); EOSINOPHILS PERCENT AUTO 0 (0.7-5.8); HEMATOCRIT 42.7 % (34.1-44.9); IMMATURE GRAN ABSOLUTE AUTO 0.02 K/mm3 (0.00-0.10); IMMATURE GRAN PERCENT AUTO 0.2 % (<=1.0); LYMPHOCYTES ABSOLUTE AUTO 0.89 K/mm3 (1.18-3.74); LYMPHOCYTES PERCENT AUTO 7.4 % (19.3-51.7); MEAN CORPUSCULAR HEMOGLOBIN 28.9 pg (25.6-32.2); MEAN CORPUSCULAR HGB CONC 33.7 g/dl (32.2-35.5); MEAN PLATELET VOLUME 9.9 fl (9.4-12.3); MONOCYTES ABSOLUTE AUTO 0.58 K/mm3 (0.24-0.36); MONOCYTES PERCENT AUTO 4.8 % (4.7-12.5); NEUTROPHILS ABSOLUTE AUTO 10.54 K/mm3 (1.56-6.13); NEUTROPHILS PERCENT AUTO 87.5 % (34.0-71.1); RED BLOOD CELL COUNT 4.98 M/mm3 (3.98-5.22); WHITE BLOOD CELL COUNT,WBC 12.04 K/mm3 (3.98-10.04)
[2023-02-04 11:58] LABS: HEMOGLOBIN 14.4 gm/dl (11.2-15.7); MEAN CORPUSCULAR VOLUME 85.7 fl (79.4-94.8); PLATELET COUNT,PLT 221 K/mm3 (182-369)
[2023-02-04 12:20] LABS: A/G RATIO 0.7 (1-2); ALBUMIN 3.6 g/dl (3.4-5.0); ANION GAP 15.4 (5-15); BILIRUBIN TOTAL 0.8 mg/dL (0.2-1.0); BUN/CREATININE RATIO 9.2 (14-18); CALCIUM 9.8 mg/dL (8.5-10.1); CREATININE 1.2 mg/dL (0.55-1.02); EST CRCL DRUG DOSING (CG) 41.97 mL/min; POTASSIUM,K 3.4 mEq/L (3.5-5.1); PROTEIN TOTAL,TP 8.9 g/dl (6.4-8.2)
[2023-02-04] MEDS ORDERED: cefTRIAXone 2 GM in Sodium Chloride 0.9% 100 ML IV ONE (12:32)
[2023-02-04 12:46] LABS: C-REACTIVE PROTEIN 27.7 mg/dL (<1.0)
[2023-02-04 12:47] LABS: LACTIC ACID 2.6 mmol/L (0.4-2.0)
[2023-02-04] MEDS ORDERED: Ketorolac 30 MG/ML SDV IVPUSH ONE (13:47)
== END 2023-02-04 14:30 ==
LOC: JD.ED 11:02
DX: A41.9 Sepsis, unspecified organism (principal); N10 Acute pyelonephritis; N99.522 Malfunction of incontinent external stoma of urinary tract; J45.909 Unspecified asthma, uncomplicated; E03.9 Hypothyroidism, unspecified; Z88.5 Allergy status to narcotic agent; Z91.040 Latex allergy status; Z91.041 Radiographic dye allergy status; Z79.899 Other long term (current) drug therapy
CPT/HCPCS: 36415; 74176; 80053; 83605; 85025; 86140; 87040; 87154; 96361; 96365; 96375; 96376; 99285; J0696; J1170; J1885; J2405; J3490; J7030; 87077; 87186

== ENCOUNTER 2023-04-21 10:14 | Inpatient (IN) | payer BC ==
[2023-04-21] MEDS ORDERED: Sodium Chloride 0.9% 10 ML Syringe FLUSH PRN (11:01)
[2023-04-21 11:20] LABS: BASOPHILS ABSOLUTE AUTO 0.1 K/mm3 (0.0-0.2); BASOPHILS PERCENT AUTO 0.3 % (0.0-1.0); EOSINOPHILS PERCENT AUTO 0.2 % (0.0-6.0); HEMATOCRIT 41.8 % (37.0-47.0); HEMOGLOBIN 13.8 gm/dl (12.0-16.0); IMMATURE GRAN ABSOLUTE AUTO 0.04 K/mm3 (0.00-0.05); IMMATURE GRAN PERCENT AUTO 0.3 % (0.0-0.4); LYMPHOCYTES ABSOLUTE AUTO 1.4 K/mm3 (1.0-4.8); LYMPHOCYTES PERCENT AUTO 9.3 % (24.0-44.0); MEAN CORPUSCULAR HEMOGLOBIN 28.7 pg (28.0-32.0); MEAN CORPUSCULAR VOLUME 86.9 fl (83.0-99.0); MEAN PLATELET VOLUME 8.8 fl (9.4-12.3); MONOCYTES ABSOLUTE AUTO 0.7 K/mm3 (0.0-0.8); MONOCYTES PERCENT AUTO 4.7 % (0.0-8.0); NEUTROPHILS ABSOLUTE AUTO 12.7 K/mm3 (1.8-7.7); NEUTROPHILS PERCENT AUTO 85.2 % (41.0-71.0); PLATELET COUNT,PLT 357 K/mm3 (150-400); RED BLOOD CELL COUNT 4.81 M/mm3 (4.10-5.30); WHITE BLOOD CELL COUNT,WBC 14.96 K/mm3 (3.9-11.3)
[2023-04-21 11:45] LABS: A/G RATIO 0.9 (1-2); ALBUMIN 4.2 g/dl (3.4-5.0); ANION GAP 14.2 (5-15); BILIRUBIN TOTAL 0.3 mg/dL (0.2-1.0); C-REACTIVE PROTEIN 5.2 mg/dL (<1.0); CALCIUM 9.7 mg/dL (8.5-10.1); EST CRCL DRUG DOSING (CG) 50.37 mL/min; POTASSIUM,K 3.2 mEq/L (3.5-5.1); PROTEIN TOTAL,TP 8.7 g/dl (6.4-8.2)
[2023-04-21] MEDS ORDERED: Acetaminophen 325 MG Tab PO ONE (11:47)
[2023-04-21] MEDS ORDERED: cefTRIAXone 2 GM in Sodium Chloride 0.9% 100 ML IV ONE (11:48)
[2023-04-21] MEDS ORDERED: HYDROmorphone 0.5 MG/0.5 ML Syringe IVPUSH ONE ×2 (11:51→13:38)
[2023-04-21 13:45] LABS: APPEARANCE,URINE CLEAR (Clear); BILIRUBIN,URINE NEGATIVE (Negative); COLOR,URINE YELLOW (Yellow); GLUCOSE,URINE NEGATIVE (Negative); KETONES,URINE NEGATIVE (Negative); LEUKOCYTE ESTERASE,URINE NEGATIVE (Negative); NITRITE,URINE NEGATIVE (Negative); OCCULT BLOOD,URINE NEGATIVE (Negative); PH,URINE 5.5 (5.0-8.0); PROTEIN,URINE 1+ (Negative); UROBILINOGEN,URINE 0.2 (0.2-1.0)
[2023-04-21 14:22] LABS: RBC,URINE 0-5 /hpf (0-5); WBC,URINE 0-5 /hpf (0-5)
[2023-04-21 14:23] LABS: BACTERIA,URINE FEW /hpf (FEW); MUCUS,URINE FEW /hpf (FEW); SQUAMOUS EPITHELIAL CELLS,UR 0-5 /hpf (0-5)
[2023-04-21 14:45] LABS: CORONAVIRUS COVID-19 NAA NEGATIVE (NEGATIVE); INFLUENZA A NAA NEGATIVE (NEGATIVE); RESPIRATORY SYNCYTIAL VIR NAA NEGATIVE (NEGATIVE)
[2023-04-21] MEDS ORDERED: Sodium Chloride 0.9% 1,000 ML IV SCH (15:00)
[2023-04-21] MEDS ORDERED: Ibuprofen 600 MG Tab PO ONE (15:18)
[2023-04-21 15:34] LABS: APPEARANCE,URINE CLEAR (Clear); BILIRUBIN,URINE NEGATIVE (Negative); COLOR,URINE LIGHT YELLOW (Yellow); GLUCOSE,URINE NEGATIVE (Negative); KETONES,URINE NEGATIVE (Negative); LEUKOCYTE ESTERASE,URINE 3+ (Negative); NITRITE,URINE POSITIVE (Negative); OCCULT BLOOD,URINE 2+ (Negative); PROTEIN,URINE 1+ (Negative); UROBILINOGEN,URINE 0.2 (0.2-1.0)
[2023-04-21 15:43] LABS: BACTERIA,URINE MODERATE /hpf (FEW); MUCUS,URINE FEW /hpf (FEW); SQUAMOUS EPITHELIAL CELLS,UR 0-5 /hpf (0-5); WBC,URINE 30-40 /hpf (0-5)
[2023-04-21] MEDS ORDERED: Piperacillin/Tazobactam 4.5 GM in Sodium Chloride 0.9% 100 ML IV ONE (17:30)
[2023-04-21] MEDS ORDERED: Piperacillin/Tazobactam 4.5 GM in Sodium Chloride 0.9% 100 ML IV SCH (17:30)
[2023-04-22] MEDS ORDERED: Ondansetron 4 MG/2 ML SDV IVPUSH ONE (00:33)
[2023-04-22] MEDS ORDERED: HYDROmorphone 0.5 MG/0.5 ML Syringe IVPUSH ONE (00:33)
[2023-04-22] MEDS: Piperacillin/Tazobactam 4.5 GM in Sodium Chloride 0.9% 100 ML IV SCH ×3 (02:13→18:02)
[2023-04-22] MEDS ORDERED: Acetaminophen/oxyCODONE 325-5 MG Tab PO ONE (04:42)
[2023-04-22] MEDS ORDERED: Non-Formulary Medication 1 Each (Celecoxib [Celecoxib] 200 MG Capsule) PO PRN (08:42)
[2023-04-22] MEDS ORDERED: Celecoxib 100 MG Cap PO PRN (08:47)
[2023-04-22] MEDS ORDERED: Non-Formulary Medication 1 Each (Fluticasone Propionate 9.9 ML Spray.Susp) NASBOTH SCH (09:00)
[2023-04-22] MEDS ORDERED: Non-Formulary Medication 1 Each (Fexofenadine Hcl [Allegra Allergy] 60 MG Tablet) PO SCH (09:00)
[2023-04-22] MEDS: Loratadine 10 MG Tab PO SCH (09:19)
[2023-04-22] MEDS: Gabapentin 600 MG Tab PO SCH (09:19)
[2023-04-22] MEDS: Levothyroxine 25 MCG Tab PO SCH (09:20)
[2023-04-22] MEDS: amLODIPine 5 MG Tab PO SCH (09:20)
[2023-04-22] MEDS: Carboxymethylcellulose Sodium 1% Ophth Gel 15 ML Bottle EYEBOTH SCH ×2 (09:24→21:20)
[2023-04-22] MEDS ORDERED: Acetaminophen 325 MG Tab PO ONE (10:22)
[2023-04-22] MEDS ORDERED: Potassium Chloride 20 MEQ Tab.ER PO ONE ×2 (11:04→13:45)
[2023-04-22 14:48] LABS: BASOPHILS ABSOLUTE AUTO 0.1 K/mm3 (0.0-0.2); BASOPHILS PERCENT AUTO 0.6 % (0.0-1.0); EOSINOPHILS ABSOLUTE AUTO 0.1 K/mm3 (0.0-0.4); EOSINOPHILS PERCENT AUTO 1.1 % (0.0-6.0); HEMATOCRIT 39.8 % (37.0-47.0); HEMOGLOBIN 12.9 gm/dl (12.0-16.0); IMMATURE GRAN ABSOLUTE AUTO 0.03 K/mm3 (0.00-0.05); IMMATURE GRAN PERCENT AUTO 0.3 % (0.0-0.4); LYMPHOCYTES ABSOLUTE AUTO 1.4 K/mm3 (1.0-4.8); MEAN CORPUSCULAR HEMOGLOBIN 28.6 pg (28.0-32.0); MEAN CORPUSCULAR HGB CONC 32.4 g/dl (32.0-36.0); MEAN CORPUSCULAR VOLUME 88.2 fl (83.0-99.0); MEAN PLATELET VOLUME 8.9 fl (9.4-12.3); MONOCYTES ABSOLUTE AUTO 0.3 K/mm3 (0.0-0.8); MONOCYTES PERCENT AUTO 3.4 % (0.0-8.0); NEUTROPHILS PERCENT AUTO 80.6 % (41.0-71.0); PLATELET COUNT,PLT 311 K/mm3 (150-400); RED BLOOD CELL COUNT 4.51 M/mm3 (4.10-5.30); WHITE BLOOD CELL COUNT,WBC 9.87 K/mm3 (3.9-11.3)
[2023-04-22] MEDS ORDERED: Ondansetron 4 MG/2 ML SDV IV PRN (15:03)
[2023-04-22] MEDS ORDERED: Ondansetron 4 MG Tab.DIS PO PRN (15:03)
[2023-04-22 15:04] LABS: A/G RATIO 0.7 (1-2); ANION GAP 10.8 (5-15); BILIRUBIN TOTAL 0.3 mg/dL (0.2-1.0); CALCIUM 9.5 mg/dL (8.5-10.1); EST CRCL DRUG DOSING (CG) 50.37 mL/min; POTASSIUM,K 3.8 mEq/L (3.5-5.1); PROTEIN TOTAL,TP 7.2 g/dl (6.4-8.2)
[2023-04-22] MEDS ORDERED: Piperacillin/Tazobactam 4.5 GM in Sodium Chloride 0.9% 100 ML IV SCH (15:15)
[2023-04-22] MEDS: Dextrose 5%-0.45% NaCl 1,000 ML IV SCH (16:13)
[2023-04-22] MEDS: Heparin Sodium 5,000 Units/ML Vial SUBCUT SCH ×2 (16:13→23:13)
[2023-04-22] MEDS: Acetaminophen 325 MG Tab PO PRN ×2 (18:12→23:47)
[2023-04-22] MEDS: Fluticasone NASAL Spray 16 GM Bottle NASBOTH SCH (18:57)
[2023-04-23] MEDS: Piperacillin/Tazobactam 4.5 GM in Sodium Chloride 0.9% 100 ML IV SCH ×3 (01:22→17:50)
[2023-04-23] MEDS: Dextrose 5%-0.45% NaCl 1,000 ML IV SCH (01:22)
[2023-04-23] MEDS: Levothyroxine 25 MCG Tab PO SCH (05:04)
[2023-04-23] MEDS: Gabapentin 600 MG Tab PO SCH (05:04)
[2023-04-23] MEDS ORDERED: Gabapentin 300 MG Cap PO SCH (06:00)
[2023-04-23 06:04] LABS: ANION GAP 12.9 (5-15); BUN/CREATININE RATIO 8.9 (14-18); CREATININE 0.9 mg/dL (0.55-1.02); EST CRCL DRUG DOSING (CG) 55.97 mL/min; POTASSIUM,K 3.9 mEq/L (3.5-5.1)
[2023-04-23 06:13] LABS: BASOPHILS PERCENT AUTO 0.7 % (0.0-1.0); EOSINOPHILS ABSOLUTE AUTO 0.2 K/mm3 (0.0-0.4); EOSINOPHILS PERCENT AUTO 4.4 % (0.0-6.0); HEMATOCRIT 36.8 % (37.0-47.0); HEMOGLOBIN 11.7 gm/dl (12.0-16.0); IMMATURE GRAN ABSOLUTE AUTO 0.01 K/mm3 (0.00-0.05); IMMATURE GRAN PERCENT AUTO 0.2 % (0.0-0.4); LYMPHOCYTES ABSOLUTE AUTO 1.4 K/mm3 (1.0-4.8); MEAN CORPUSCULAR HEMOGLOBIN 28.1 pg (28.0-32.0); MEAN CORPUSCULAR HGB CONC 31.8 g/dl (32.0-36.0); MEAN CORPUSCULAR VOLUME 88.5 fl (83.0-99.0); MEAN PLATELET VOLUME 9.6 fl (9.4-12.3); MONOCYTES ABSOLUTE AUTO 0.3 K/mm3 (0.0-0.8); MONOCYTES PERCENT AUTO 5.9 % (0.0-8.0); NEUTROPHILS ABSOLUTE AUTO 3.5 K/mm3 (1.8-7.7); NEUTROPHILS PERCENT AUTO 63.8 % (41.0-71.0); PLATELET COUNT,PLT 310 K/mm3 (150-400); RED BLOOD CELL COUNT 4.16 M/mm3 (4.10-5.30); WHITE BLOOD CELL COUNT,WBC 5.43 K/mm3 (3.9-11.3)
[2023-04-23] MEDS: Acetaminophen 325 MG Tab PO PRN ×3 (06:24→20:50)
[2023-04-23] MEDS: Heparin Sodium 5,000 Units/ML Vial SUBCUT SCH ×3 (06:25→23:19)
[2023-04-23] MEDS: amLODIPine 5 MG Tab PO SCH (07:59)
[2023-04-23] MEDS: Loratadine 10 MG Tab PO SCH (07:59)
[2023-04-23] MEDS: Carboxymethylcellulose Sodium 1% Ophth Gel 15 ML Bottle EYEBOTH SCH ×2 (08:00→20:51)
[2023-04-23] MEDS ORDERED: Fluticasone NASAL Spray 16 GM Bottle NASBOTH PRN (10:45)
[2023-04-23] MEDS: Fluticasone NASAL Spray 16 GM Bottle NASBOTH SCH (13:53)
[2023-04-23] MEDS ORDERED: Aluminum Hydroxide/Magnesium Hydroxide/Simethicone Susp 30 ML Cup PO PRN (17:07)
[2023-04-24] MEDS: Piperacillin/Tazobactam 4.5 GM in Sodium Chloride 0.9% 100 ML IV SCH ×2 (02:15→09:09)
[2023-04-24] MEDS: Acetaminophen 325 MG Tab PO PRN ×2 (02:51→09:08)
[2023-04-24 05:40] LABS: BASOPHILS ABSOLUTE AUTO 0.1 K/mm3 (0.0-0.2); BASOPHILS PERCENT AUTO 0.9 % (0.0-1.0); EOSINOPHILS ABSOLUTE AUTO 0.2 K/mm3 (0.0-0.4); EOSINOPHILS PERCENT AUTO 3.9 % (0.0-6.0); HEMATOCRIT 38.7 % (37.0-47.0); HEMOGLOBIN 12.6 gm/dl (12.0-16.0); IMMATURE GRAN ABSOLUTE AUTO 0.01 K/mm3 (0.00-0.05); IMMATURE GRAN PERCENT AUTO 0.2 % (0.0-0.4); LYMPHOCYTES ABSOLUTE AUTO 1.5 K/mm3 (1.0-4.8); LYMPHOCYTES PERCENT AUTO 25.5 % (24.0-44.0); MEAN CORPUSCULAR HEMOGLOBIN 28.5 pg (28.0-32.0); MEAN CORPUSCULAR HGB CONC 32.6 g/dl (32.0-36.0); MEAN CORPUSCULAR VOLUME 87.6 fl (83.0-99.0); MEAN PLATELET VOLUME 9.2 fl (9.4-12.3); MONOCYTES ABSOLUTE AUTO 0.3 K/mm3 (0.0-0.8); MONOCYTES PERCENT AUTO 4.4 % (0.0-8.0); NEUTROPHILS ABSOLUTE AUTO 3.7 K/mm3 (1.8-7.7); NEUTROPHILS PERCENT AUTO 65.1 % (41.0-71.0); PLATELET COUNT,PLT 362 K/mm3 (150-400); RED BLOOD CELL COUNT 4.42 M/mm3 (4.10-5.30); WHITE BLOOD CELL COUNT,WBC 5.69 K/mm3 (3.9-11.3)
[2023-04-24 06:04] LABS: ANION GAP 12.9 (5-15); CALCIUM 9.6 mg/dL (8.5-10.1); EST CRCL DRUG DOSING (CG) 50.37 mL/min; POTASSIUM,K 3.9 mEq/L (3.5-5.1)
[2023-04-24] MEDS: Levothyroxine 25 MCG Tab PO SCH (06:16)
[2023-04-24] MEDS ORDERED: Sodium Chloride 0.9% 100 ML ONE (08:57)
[2023-04-24] MEDS ORDERED: Gabapentin 300 MG Cap PO SCH (09:00)
[2023-04-24] MEDS ORDERED: Loratadine 10 MG Tab PO PRN (09:00)
[2023-04-24] MEDS: amLODIPine 5 MG Tab PO SCH (09:07)
[2023-04-24] MEDS: Carboxymethylcellulose Sodium 1% Ophth Gel 15 ML Bottle EYEBOTH SCH (09:09)
[2023-04-24] MEDS: Heparin Sodium 5,000 Units/ML Vial SUBCUT SCH (09:10)
== END 2023-04-24 10:59 | disposition home or self-care (01) | DRG 466 ==
LOC: JD.ED 10:14 → JD.MS 04-22 15:03
PROVIDERS: ADMIT Hospitalist; ATTEND Hospitalist
DX: T83.512A Infection and inflammatory reaction due to nephrostomy catheter, initial encounter (principal); A41.4 Sepsis due to anaerobes; I10 Essential (primary) hypertension; Z20.822 Contact with and (suspected) exposure to COVID-19; J45.909 Unspecified asthma, uncomplicated; M19.90 Unspecified osteoarthritis, unspecified site; Z96.659 Presence of unspecified artificial knee joint; E03.9 Hypothyroidism, unspecified; N12 Tubulo-interstitial nephritis, not specified as acute or chronic; Z91.040 Latex allergy status; Z88.5 Allergy status to narcotic agent; Z91.041 Radiographic dye allergy status; Z79.899 Other long term (current) drug therapy; Z90.710 Acquired absence of both cervix and uterus; Z98.890 Other specified postprocedural states; Z87.891 Personal history of nicotine dependence; Z98.51 Tubal ligation status; Y84.6 Urinary catheterization as the cause of abnormal reaction of the patient, or of later complication, without mention of misadventure at the time of the procedure
CPT/HCPCS: 0241U; 36415; 70450; 70450-26; 74176; 74176-26; 80048; 80053; 81001; 83605; 85025; 86140; 87040; 87077; 87086; 87088; 87154; 87186; 93005; 93010; 96365; 96375; 96376; 99222; 99232; 99239; 99285; 99285-25; A9270-GY; J0696; J1170; J1644; J2405; J2543; J3490; J7030; J7042

== ENCOUNTER 2023-05-02 14:53 | Emergency (ER) | payer BC ==
[2023-05-02] MEDS ORDERED: Sodium Chloride 0.9% 10 ML Syringe FLUSH PRN (15:06)
[2023-05-02] MEDS ORDERED: Sodium Chloride 0.9% 1,000 ML IV SCH (15:15)
[2023-05-02 15:33] LABS: BASOPHILS ABSOLUTE AUTO 0.1 K/mm3 (0.0-0.2); BASOPHILS PERCENT AUTO 0.5 % (0.0-1.0); EOSINOPHILS ABSOLUTE AUTO 0.1 K/mm3 (0.0-0.4); EOSINOPHILS PERCENT AUTO 0.4 % (0.0-6.0); HEMATOCRIT 39.3 % (37.0-47.0); HEMOGLOBIN 13.1 gm/dl (12.0-16.0); IMMATURE GRAN ABSOLUTE AUTO 0.06 K/mm3 (0.00-0.05); IMMATURE GRAN PERCENT AUTO 0.5 % (0.0-0.4); LYMPHOCYTES ABSOLUTE AUTO 2.2 K/mm3 (1.0-4.8); LYMPHOCYTES PERCENT AUTO 18.6 % (24.0-44.0); MEAN CORPUSCULAR HGB CONC 33.3 g/dl (32.0-36.0); MEAN CORPUSCULAR VOLUME 87.1 fl (83.0-99.0); MEAN PLATELET VOLUME 8.3 fl (9.4-12.3); MONOCYTES ABSOLUTE AUTO 0.3 K/mm3 (0.0-0.8); MONOCYTES PERCENT AUTO 2.6 % (0.0-8.0); NEUTROPHILS PERCENT AUTO 77.4 % (41.0-71.0); PLATELET COUNT,PLT 425 K/mm3 (150-400); RED BLOOD CELL COUNT 4.51 M/mm3 (4.10-5.30); WHITE BLOOD CELL COUNT,WBC 11.69 K/mm3 (3.9-11.3)
[2023-05-02 15:34] LABS: BILIRUBIN,URINE NEGATIVE (Negative); GLUCOSE,URINE NEGATIVE (Negative); KETONES,URINE NEGATIVE (Negative); LEUKOCYTE ESTERASE,URINE 1+ (Negative); NITRITE,URINE NEGATIVE (Negative); OCCULT BLOOD,URINE 3+ (Negative); PH,URINE 8.5 (5.0-8.0); PROTEIN,URINE 3+ (Negative); UROBILINOGEN,URINE 0.2 (0.2-1.0)
[2023-05-02 15:38] LABS: APPEARANCE,URINE SLT CLOUDY (Clear); COLOR,URINE PINK (Yellow)
[2023-05-02] MEDS ORDERED: Iopamidol 612 MG/ML 100 ML Bottle IVPUSH ONE (15:43)
[2023-05-02 15:44] LABS: RBC,URINE >100 /hpf (0-5); SQUAMOUS EPITHELIAL CELLS,UR 0-5 /hpf (0-5)
[2023-05-02 15:45] LABS: BACTERIA,URINE FEW /hpf (FEW); MUCUS,URINE FEW /hpf (FEW)
[2023-05-02] MEDS ORDERED: diphenhydrAMINE 50 MG/ML SDV IVPUSH ONE (15:55)
[2023-05-02 16:10] LABS: A/G RATIO 0.9 (1-2); ALBUMIN 3.6 g/dl (3.4-5.0); ANION GAP 14.8 (5-15); BILIRUBIN TOTAL 0.2 mg/dL (0.2-1.0); CALCIUM 9.7 mg/dL (8.5-10.1); CREATININE 1.1 mg/dL (0.55-1.02); EST CRCL DRUG DOSING (CG) 45.79 mL/min; POTASSIUM,K 3.8 mEq/L (3.5-5.1); PROTEIN TOTAL,TP 7.8 g/dl (6.4-8.2)
[2023-05-02] MEDS ORDERED: Amoxicillin/Clavulanate K 875-125 MG Tab PO ONE (18:14)
== END 2023-05-02 18:35 | disposition home or self-care (01) ==
LOC: JD.ED 14:53
DX: N10 Acute pyelonephritis (principal); J45.909 Unspecified asthma, uncomplicated; E03.9 Hypothyroidism, unspecified
CPT/HCPCS: 36415; 74177; 80053; 81001; 83605; 85025; 87040; 87086; 96374; 99284; A9270; J1200; J3490; J7030; Q9967

== ENCOUNTER 2023-05-15 16:53 | Emergency (ER) | payer BC ==
[2023-05-15 18:38] LABS: APPEARANCE,URINE CLEAR (Clear); BILIRUBIN,URINE NEGATIVE (Negative); COLOR,URINE YELLOW (Yellow); GLUCOSE,URINE NEGATIVE (Negative); KETONES,URINE NEGATIVE (Negative); LEUKOCYTE ESTERASE,URINE NEGATIVE (Negative); NITRITE,URINE NEGATIVE (Negative); OCCULT BLOOD,URINE NEGATIVE (Negative); PROTEIN,URINE NEGATIVE (Negative); UROBILINOGEN,URINE 0.2 (0.2-1.0)
[2023-05-15] MEDS ORDERED: Acetaminophen 325 MG Tab PO ONE (18:44)
[2023-05-15 18:56] LABS: BACTERIA,URINE FEW /hpf (FEW); MUCUS,URINE FEW /hpf (FEW); RBC,URINE 0-5 /hpf (0-5); WBC,URINE 0-5 /hpf (0-5)
[2023-05-15 19:40] LABS: APPEARANCE,URINE SLT CLOUDY (Clear); BILIRUBIN,URINE NEGATIVE (Negative); COLOR,URINE YELLOW (Yellow); GLUCOSE,URINE NEGATIVE (Negative); KETONES,URINE NEGATIVE (Negative); LEUKOCYTE ESTERASE,URINE 3+ (Negative); NITRITE,URINE POSITIVE (Negative); OCCULT BLOOD,URINE 3+ (Negative); PH,URINE 7.5 (5.0-8.0); PROTEIN,URINE 3+ (Negative); UROBILINOGEN,URINE 0.2 (0.2-1.0)
[2023-05-15] MEDS ORDERED: cefTRIAXone 1 GM, Lidocaine 1% 2.1 ML IM ONE ×2 (19:50)
[2023-05-15 19:55] LABS: RBC,URINE 75-100 /hpf (0-5); WBC CLUMPS,URINE MODERATE /hpf (NOT SEEN); WBC,URINE >100 /hpf (0-5)
[2023-05-15 19:56] LABS: BACTERIA,URINE MANY /hpf (FEW); MUCUS,URINE NOT SEEN /hpf (FEW); SQUAMOUS EPITHELIAL CELLS,UR NOT SEEN /hpf (0-5)
[2023-05-15] MEDS ORDERED: Ketorolac 30 MG/ML SDV IM ONE (20:10)
== END 2023-05-15 20:35 | disposition home or self-care (01) ==
LOC: JD.ED 16:53
DX: N12 Tubulo-interstitial nephritis, not specified as acute or chronic (principal); J45.909 Unspecified asthma, uncomplicated; E03.9 Hypothyroidism, unspecified; Z79.899 Other long term (current) drug therapy; Z88.5 Allergy status to narcotic agent; Z91.040 Latex allergy status; Z91.041 Radiographic dye allergy status
CPT/HCPCS: 81001; 87086; 87088; 87186; 96372; 99284; A9270; J0696; J1885; J3490

== ENCOUNTER 2023-07-01 13:32 | Emergency (ER) | payer BC ==
[2023-07-01] MEDS ORDERED: Levofloxacin/Dextrose 5%-Water 500 MG in Premix Bag 1 BAG IV ONE (13:59)
[2023-07-01] MEDS ORDERED: Sodium Chloride 0.9% 10 ML Syringe FLUSH PRN (14:00)
[2023-07-01 15:18] LABS: BASOPHILS PERCENT AUTO 0.4 % (0.0-1.0); EOSINOPHILS ABSOLUTE AUTO 0.2 K/mm3 (0.0-0.4); EOSINOPHILS PERCENT AUTO 2.4 % (0.0-6.0); HEMATOCRIT 37.7 % (37.0-47.0); HEMOGLOBIN 11.9 gm/dl (12.0-16.0); IMMATURE GRAN ABSOLUTE AUTO 0.01 K/mm3 (0.00-0.05); IMMATURE GRAN PERCENT AUTO 0.1 % (0.0-0.4); LYMPHOCYTES ABSOLUTE AUTO 1.9 K/mm3 (1.0-4.8); LYMPHOCYTES PERCENT AUTO 26.8 % (24.0-44.0); MEAN CORPUSCULAR HEMOGLOBIN 27.7 pg (28.0-32.0); MEAN CORPUSCULAR HGB CONC 31.6 g/dl (32.0-36.0); MEAN CORPUSCULAR VOLUME 87.7 fl (83.0-99.0); MEAN PLATELET VOLUME 9.4 fl (9.4-12.3); MONOCYTES ABSOLUTE AUTO 0.3 K/mm3 (0.0-0.8); MONOCYTES PERCENT AUTO 4.6 % (0.0-8.0); NEUTROPHILS ABSOLUTE AUTO 4.7 K/mm3 (1.8-7.7); NEUTROPHILS PERCENT AUTO 65.7 % (41.0-71.0); PLATELET COUNT,PLT 365 K/mm3 (150-400)
[2023-07-01 15:34] LABS: ANION GAP 11.7 (5-15); CALCIUM 9.7 mg/dL (8.5-10.1); EST CRCL DRUG DOSING (CG) 50.37 mL/min; POTASSIUM,K 3.7 mEq/L (3.5-5.1)
[2023-07-01 15:37] LABS: INR 0.96; PROTHROMBIN TIME 10.3 SECONDS (9.7-12.0)
== END 2023-07-01 16:56 | disposition home or self-care (01) ==
LOC: JD.ED 13:32
DX: N39.0 Urinary tract infection, site not specified (principal); E03.9 Hypothyroidism, unspecified; Z88.5 Allergy status to narcotic agent; Z91.041 Radiographic dye allergy status; Z79.899 Other long term (current) drug therapy; Z90.710 Acquired absence of both cervix and uterus
CPT/HCPCS: 36415; 80048; 85025; 85610; 96365; 99283; J1956